=== PATIENT | female | born 1990 | race Caucasian/White ===

== ENCOUNTER 2024-06-26 16:49 | Emergency (ER) | payer OTHER, SELFPAY ==
[2024-06-26] VITALS (8 sets, daily range): BP systolic 113–162; BP diastolic 71–89; PULSE 57–87; RESP 13–20; TEMP 36.7–36.8; O2SAT 95–100; BMI 32.3
--- NOTE | 2024-06-26 16:45 | ECG_ITS ---
APPROVED REPORT Exam: Resting ECG HR:88 bpm ECG Measurements Heart Rate 88 AXES DC 128 P 54 QRSd 95 QRS 73 QT 374 T 73 QTc 419 Conclusion SINUS RHYTHM WITH SINUS ARRHYTHMIA NORMAL ECG UNCONFIRMED REPORT Electronically signed by : HORTENSIA ALSTON, 06/29/2024 00:44:45
--- NOTE | 2024-06-26 16:59 | ED_ITS ---
Discharge Plan Disposition Patient Disposition: Home, Self-Care Condition: Good Prescriptions Prescriptions: No Action No Known Home Medications Referrals Follow up/Referrals: Cuate Valdes II, MD [Staff Physician] - See instructions (Chronic constipation) Darian Cartwright DO [Staff Physician] - See instructions (Left CTS) Provider,MD Jose [Primary Care Provider] - See instructions Activity Restrictions/Add. Instructions Additional Instructions/Restrictions: Please utilize the disimpaction sheet that we gave you. Please call both gastroenterology and orthopedics to make your appointments. Return to the ER for any worsening signs or symptoms as needed Clinical Impressions Clinical Impression: Left hand paresthesia Chest pain Qualifiers: Chest pain type: unspecified Qualified Code(s): R07.9 - Chest pain, unspecified Constipation Qualifiers: Constipation type: unspecified constipation type Qualified Code(s): K59.00 - Constipation, unspecified Print Language Print Language: Chinese Discharge ED Provider: sIiah Allison General Adult HPI <BLAINE Glasgow - Last Filed: 06/26/24 20:22> General Chief complaint: Chest Pain Stated complaint: chest pain Time Seen by Provider: 06/26/24 16:59 History of Present Illness HPI narrative: Patient presents for evaluation of abdominal pain and left hand paresthesia. Patient states that she has been having crampy upper abdominal pain intermittently all day. It moves from [id number] has not been constant. She has no associated nausea vomiting diarrhea chest pain shortness of breath fever chills hemoptysis hematochezia melena. Patient states that she had a small pebble sized bowel movement yesterday but has not gone in the last 2 days. Additionally late this afternoon she started having burning and tingling in her left hand and left forearm. She denies loss of motor or sensory. She does work at a desk all day. She is right-hand dominant however. Related Data Home Medications ?Medication ?Instructions ?Recorded ?Confirmed No Known Home Medications 06/26/24 06/26/24 Allergies Allergy/AdvReac Type Severity Reaction Status Date / Time No Known Allergies Allergy Verified 06/26/24 17:12 PFSH <BLAINE Glasgow - Last Filed: 06/26/24 20:22> [facility] Disclaimer: The information contained in this section may have been updated after the patient was seen, as this information can be updated by other users. Social History (Updated 06/26/24 @ 20:22 by BLAINE Glasgow) Smoking Status: Never smoker alcohol intake: never current occupational status: employed Travel in the last 8 weeks: None Have you lived/traveled outside [place] in past 30 days?: No Contact w/someone who lives/traveled outside US past 30 days?: No Exposure to someone with infectious disease in past 14 days?: No Do you have a fever (greater than 100.4 F or 38 C)?: No Have you tested positive for COVID-19: No Exposed to someone with COVID-19 in past 14 days?: No Do you have a sore throat?: No Do you have a cough?: No Do you have any weakness?: No Do you have any diarrhea?: No Are you experiencing any unusual bleeding?: No Do you have any muscle aches/pain?: No Do you have any abdominal pain?: No Are you experiencing loss of taste or smell?: No <BLAINE Glasgow - Last Filed: 06/26/24 20:22> ROS Obtained: Yes Systems reviewed as appropriate & no additional complaints except as documented Physical Exam <BLAINE Glasgow - Last Filed: 06/26/24 20:22> General General appearance: alert Respiratory Respiratory exam: Present normal lung sounds bilaterally Cardiovascular Cardiovascular exam: Present regular rate Neurological Exam Neurological exam: Present alert and oriented X3 Medical Decision Making <BLAINE Glasgow - Last Filed: 06/26/24 20:22> Medical Records Medical records reviewed: Yes I reviewed the patient's medical records. Screening: Per USPSTF and CDC recommendations, given the prevalence of disease in our region, it is our hospital?s policy to screen for HIV and viral Hepatitis for all patients aged 18 and over and those with ongoing risk factors. Sebas Inquiry Pt receiving controlled substance: No Vital Signs: 06/26/24 16:49 06/26/24 17:01 06/26/24 17:30 Temperature 98.0 F Temperature Source Oral Pulse Rate 83 67 Pulse Rate [Right] 87 Respiratory Rate 20 14 17 Blood Pressure 116/74 113/71 Blood Pressure [Right Arm] 162/87 H Blood Pressure Mean [Right Arm] 112 Blood Pressure Source [Right Arm] Automatic Cuff 02 Sat by Pulse Oximetry 100 97 96 Oxygen Delivery Method Room Air Room Air Room Air 06/26/24 18:00 06/26/24 18:30 06/26/24 19:17 Temperature Temperature Source Pulse Rate 72 68 60 Pulse Rate [Right] Respiratory Rate 15 13 15 Blood Pressure 121/81 133/84 118/89 Blood Pressure [Right Arm] Blood Pressure Mean [Right Arm] Blood Pressure Source [Right Arm] 02 Sat by Pulse Oximetry 97 95 96 Oxygen Delivery Method 06/26/24 19:30 06/26/24 20:24 Temperature 98.3 F Temperature Source Pulse Rate 57 L 67 Pulse Rate [Right] Respiratory Rate 17 16 Blood Pressure 119/84 131/88 Blood Pressure [Right Arm] Blood Pressure Mean [Right Arm] Blood Pressure Source [Right Arm] 02 Sat by Pulse Oximetry 97 Oxygen Delivery Method Room Air Lab Data Lab results reviewed: Yes I reviewed the patient's lab results. Lab Results 06/26/24 16:45: WBC 7.6, RBC 4.87, Hgb 14.3, Hct 42.7, MCV 87.7, MCH 29.4, MCHC 33.5, RDW 12.3, Plt Count 293, MPV 8.8, Neut % (Auto) 57.8, Lymph % (Auto) 34.6, [place] % (Auto) 5.4, Eos % (Auto) 1.6, Baso % (Auto) 0.5, Neut # (Auto) 4.4, Lymph # (Auto) 2.6, [place] # (Auto) 0.4, Eos # (Auto) 0.1, Baso # (Auto) 0.0, D-Dimer 0.56 H, Sodium 141, Potassium 4.0, Chloride 104, Carbon Dioxide 28, Anion Gap 13.0, BUN 12, Creatinine 0.70, Estimated Creat Clear 162, Estimated GFR 96, Est GFR ( Amer) 116, Glucose 105 H, Calcium 9.4, Magnesium 1.9, Total Bilirubin 0.3, AST 49 H, ALT 75, Alkaline Phosphatase 97, Troponin I < 0.01, Total Protein 7.9, Albumin 4.8, Globulin 3.1, Albumin/Globulin Ratio 1.5, Lipase 151, TSH 2.60, Free T4 Index 3.4 L, Thyroxine (T4) 11.8 H, T3 Uptake 06/26/24 17:51: Urine Color Yellow, Urine Appearance Clear, Urine pH 7.5, Ur Specific [place] 1.015, Urine Protein Negative, Urine Glucose (UA) Negative, Urine Ketones Negative, Urine Blood Negative, Urine Nitrate Positive A, Urine Bilirubin Negative, Urine Urobilinogen 1.0, Ur Leukocyte Esterase Trace, Urine RBC Occasional, Urine WBC Occasional, Ur Squamous Epith Cells 3-5, Urine Bacteria 1+, Urine HCG, Qual Negative 06/26/24 18:00: Troponin I < 0.01 06/26/24 16:45 06/26/24 16:45 Orders (Tests/Meds): ED MEDICATIONS Discontinued Medications Generic Name Dose Route Start Last Admin Trade Name Freq PRN Reason Stop Dose Admin Acetaminophen 1,000 mg 06/26/24 17:03 06/26/24 17:47 Acetaminophen 500mg Tab PO 06/26/24 17:04 1,000 mg ONCE ONE Administration Belladonna Alkaloids 60 ml 06/26/24 17:03 06/26/24 17:47 Belladonna Alkaloids 60 Ml Ml PO 06/26/24 17:04 60 ml ONCE ONE Administration Ibuprofen 800 mg 06/26/24 17:03 06/26/24 17:47 Ibuprofen 400 Mg Tablet PO 06/26/24 17:04 800 mg ONCE ONE Administration ORDERS Category Date Time Status Chest XR 2 view (NOT portable) [XR chest 2V] Stat Exams 06/26/24 17:04 Completed KUB (single view) [XR KUB] Stat Exams 06/26/24 17:03 Completed CBC w/Auto Diff [Complete Blood Count Auto Diff] Stat Lab 06/26/24 16:45 Completed CMP [Comprehensive Metabolic Panel] Stat Lab 06/26/24 16:45 Completed D-Dimer Stat Lab 06/26/24 16:45 Completed Lipase Stat Lab 06/26/24 16:45 Completed Magnesium Stat Lab 06/26/24 16:45 Completed Thyroid Panel Stat Lab 06/26/24 16:45 Completed Trop I [Troponin I] Stat Lab 06/26/24 16:45 Completed Troponin I Q3H Lab 06/26/24 18:00 Completed UA [Urinalysis and Microscopic] Stat Lab 06/26/24 17:51 Completed Urine , HCG Qual. Stat Lab 06/26/24 17:51 Completed Urine Culture Stat Micro 06/26/24 17:51 Received HEART Score History (anamnesis): Slightly suspicious ECG: Non-specific disturbance Age: <45 years Risk factors: 1-2 risk factors Troponin: </= normal limit HEART Score: 2 Medical Decision Narrative: In summary patient is a 4-year-old female who presents to the emergency department for evaluation of upper abdominal pain and left hand paresthesia. Patient is initially hypertensive at 162/87 with a heart rate of 87 with normal sinus rhythm on the bedside monitor breathing 20 times a minute 100% on room air upon arrival, the temperature of 98.0. Physical exam is remarkable for clear breath sounds with no reproducible tenderness on palpation of her chest wall, diffuse mild abdominal tenderness more pronounced in the upper quadrants that in the lower with normal bowel sounds without rebound or guarding or rigidity. Examination of the left upper extremity shows tenderness over the volar aspect of her wrist to percussion and positive Tinel's but negative Phalen's but positive reverse Phalen's. Patient has full range of motion distally. Radial and ulnar pulses are intact grossly to exam.. Differential diagnosis includes ACS versus gastroenteritis versus constipation versus pancreatitis and patient is status post cholecystectomy, versus repetitive use injury versus carpal tunnel syndrome of the left hand.. Initial workup will be conducted with hematologic labs EKG plain film chest x-ray KUB urinalysis. Initial interventions include Tylenol GI cocktail Toradol. Initial workup reviewed by me shows that her hematologic labs are nonactionable including a D-dimer of 0.56 and by years criteria PE is excluded, an undetectable troponin x 2, normal sinus rhythm on twelve-lead EKG and my informal to rotation of her plain film chest x- ray shows no acute processes and my informal interpretation of her KUB shows a large colonic stool burden but no evidence of abnormal bowel gas pattern.. The patient was placed in observation status at 1824. Medical necessity for observational status is serial troponins. The patient was provided serial reevaluations continuous cardiac monitoring pulse oximetry while awaiting results. Second troponin was negative and delta was flat. Because of the results I feel patient to be discharged with follow-up with gastroenterology and orthopedics for constipation and carpal tunnel syndrome.. Total time in observation was 2 hours. <Isiah Allison MD - Last Filed: 06/27/24 03:57> Vital Signs: 06/26/24 16:49 06/26/24 17:01 06/26/24 17:30 Temperature 98.0 F Temperature Source Oral Pulse Rate 83 67 Pulse Rate [Right] 87 Respiratory Rate 20 14 17 Blood Pressure 116/74 113/71 Blood Pressure [Right Arm] 162/87 H Blood Pressure Mean [Right Arm] 112 Blood Pressure Source [Right Arm] Automatic Cuff 02 Sat by Pulse Oximetry 100 97 96 Oxygen Delivery Method Room Air Room Air Room Air 06/26/24 18:00 06/26/24 18:30 06/26/24 19:17 Temperature Temperature Source Pulse Rate 72 68 60 Pulse Rate [Right] Respiratory Rate 15 13 15 Blood Pressure 121/81 133/84 118/89 Blood Pressure [Right Arm] Blood Pressure Mean [Right Arm] Blood Pressure Source [Right Arm] 02 Sat by Pulse Oximetry 97 95 96 Oxygen Delivery Method 06/26/24 19:30 06/26/24 20:24 Temperature 98.3 F Temperature Source Pulse Rate 57 L 67 Pulse Rate [Right] Respiratory Rate 17 16 Blood Pressure 119/84 131/88 Blood Pressure [Right Arm] Blood Pressure Mean [Right Arm] Blood Pressure Source [Right Arm] 02 Sat by Pulse Oximetry 97 Oxygen Delivery Method Room Air Lab Data Lab Results 06/26/24 16:45: WBC 7.6, RBC 4.87, Hgb 14.3, Hct 42.7, MCV 87.7, MCH 29.4, MCHC 33.5, RDW 12.3, Plt Count 293, MPV 8.8, Neut % (Auto) 57.8, Lymph % (Auto) 34.6, [place] % (Auto) 5.4, Eos % (Auto) 1.6, Baso % (Auto) 0.5, Neut # (Auto) 4.4, Lymph # (Auto) 2.6, [place] # (Auto) 0.4, Eos # (Auto) 0.1, Baso # (Auto) 0.0, D-Dimer 0.56 H, Sodium 141, Potassium 4.0, Chloride 104, Carbon Dioxide 28, Anion Gap 13.0, BUN 12, Creatinine 0.70, Estimated Creat Clear 162, Estimated GFR 96, Est GFR ( Amer) 116, Glucose 105 H, Calcium 9.4, Magnesium 1.9, Total Bilirubin 0.3, AST 49 H, ALT 75, Alkaline Phosphatase 97, Troponin I < 0.01, Total Protein 7.9, Albumin 4.8, Globulin 3.1, Albumin/Globulin Ratio 1.5, Lipase 151, TSH 2.60, Free T4 Index 3.4 L, Thyroxine (T4) 11.8 H, T3 Uptake 06/26/24 17:51: Urine Color Yellow, Urine Appearance Clear, Urine pH 7.5, Ur Specific [place] 1.015, Urine Protein Negative, Urine Glucose (UA) Negative, Urine Ketones Negative, Urine Blood Negative, Urine Nitrate Positive A, Urine Bilirubin Negative, Urine Urobilinogen 1.0, Ur Leukocyte Esterase Trace, Urine RBC Occasional, Urine WBC Occasional, Ur Squamous Epith Cells 3-5, Urine Bacteria 1+, Urine HCG, Qual Negative 06/26/24 18:00: Troponin I < 0.01 Orders (Tests/Meds): ED MEDICATIONS Discontinued Medications Generic Name Dose Route Start Last Admin Trade Name Freq PRN Reason Stop Dose Admin Acetaminophen 1,000 mg 06/26/24 17:03 06/26/24 17:47 Acetaminophen 500mg Tab PO 06/26/24 17:04 1,000 mg ONCE ONE Administration Belladonna Alkaloids 60 ml 06/26/24 17:03 06/26/24 17:47 Belladonna Alkaloids 60 Ml Ml PO 06/26/24 17:04 60 ml ONCE ONE Administration Ibuprofen 800 mg 06/26/24 17:03 06/26/24 17:47 Ibuprofen 400 Mg Tablet PO 06/26/24 17:04 800 mg ONCE ONE Administration ORDERS Category Date Time Status Chest XR 2 view (NOT portable) [XR chest 2V] Stat Exams 06/26/24 17:04 Completed KUB (single view) [XR KUB] Stat Exams 06/26/24 17:03 Completed CBC w/Auto Diff [Complete Blood Count Auto Diff] Stat Lab 06/26/24 16:45 Completed CMP [Comprehensive Metabolic Panel] Stat Lab 06/26/24 16:45 Completed D-Dimer Stat Lab 06/26/24 16:45 Completed Lipase Stat Lab 06/26/24 16:45 Completed Magnesium Stat Lab 06/26/24 16:45 Completed Thyroid Panel Stat Lab 06/26/24 16:45 Completed Trop I [Troponin I] Stat Lab 06/26/24 16:45 Completed Troponin I Q3H Lab 06/26/24 18:00 Completed UA [Urinalysis and Microscopic] Stat Lab 06/26/24 17:51 Completed Urine , HCG Qual. Stat Lab 06/26/24 17:51 Completed Urine Culture Stat Micro 06/26/24 17:51 Received ECG Data Tracing #1: I reviewed this ECG and interpreted as documented below: EKG interpreted by me at 1651. Normal sinus rhythm. No ST elevation or depression. Ventricular rate of 88 bpm. QTc normal at 419. [place] interval normal at 128 HEART Score HEART Score: 2 Medical Decision Narrative: In summary patient is a 34-year-old female who presents to the emergency department for evaluation of upper abdominal pain and left hand paresthesia. Patient is initially hypertensive at 162/87 with a heart rate of 87 with normal sinus rhythm on the bedside monitor breathing 20 times a minute 100% on room air upon arrival, the temperature of 98.0. Physical exam is remarkable for clear breath sounds with no reproducible tenderness on palpation of her chest wall, diffuse mild abdominal tenderness more pronounced in the upper quadrants that in the lower with normal bowel sounds without rebound or guarding or rigidity. Examination of the left upper extremity shows tenderness over the volar aspect of her wrist to percussion and positive Tinel's but negative Phalen's but positive reverse Phalen's. Patient has full range of motion distally. Radial and ulnar pulses are intact grossly to exam.. Differential diagnosis includes ACS versus gastroenteritis versus constipation versus pancreatitis and patient is status post cholecystectomy, versus repetitive use injury versus carpal tunnel syndrome of the left hand.. Initial workup will be conducted with hematologic labs EKG plain film chest x-ray KUB urinalysis. Initial interventions include Tylenol GI cocktail Toradol. Initial workup reviewed by me shows that her hematologic labs are nonactionable including a D-dimer of 0.56 and by years criteria PE is excluded, an undetectable troponin x 2, normal sinus rhythm on twelve-lead EKG and my informal to rotation of her plain film chest x- ray shows no acute processes and my informal interpretation of her KUB shows a large colonic stool burden but no evidence of abnormal bowel gas pattern.. The patient was placed in observation status at 1824. Medical necessity for observational status is serial troponins. The patient was provided serial reevaluations continuous cardiac monitoring pulse oximetry while awaiting results. Second troponin was negative and delta was flat. Because of the results I feel patient to be discharged with follow-up with gastroenterology and orthopedics for constipation and carpal tunnel syndrome.. Total time in observation was 2 hours. I was consulted by the ANIYAH, and we discussed the complexity of the problems being addressed. I approve the treatment and management plan for this patient's care in the emergency department, thus performing a substantive portion of the medical decision making. Isiah Allison MD Critical Care <BLAINE Glasgow - Last Filed: 06/26/24 20:22> Critical Care Time Critical Care Time: No
--- NOTE | 2024-06-26 17:03 | XR_ITS ---
PROCEDURE INFORMATION: Exam: XR Abdomen Exam date and time: 06/26/2024 6:03 PM Age: 34 years old Clinical indication: Abdominal pain; Localized; Left upper quadrant (luq); Additional info: Abdominal pain. Left side under ribs TECHNIQUE: Imaging protocol: Radiologic exam of the abdomen. Views: Frontal supine view of the abdomen. 1 View. Total images: 2 COMPARISON: CR XR CHEST 2V 06/26/2024 5:59 PM FINDINGS: Lungs: Lung bases are clear. Gastrointestinal tract: Unremarkable bowel gas distribution. Moderate colonic stool burden. No dilated small bowel segments. Organs: No organomegaly. Status post cholecystectomy. Vasculature: Left pelvic calcification may reflect phleboliths or distal ureteral stone. Bones/joints: Unremarkable. Soft tissues: Peritoneal fascial planes are maintained. IMPRESSION: 1. Unremarkable bowel gas distribution. 2. Moderate colonic stool burden. 3. Left pelvic calcification may reflect phleboliths or distal ureteral stone.
--- NOTE | 2024-06-26 17:04 | XR_ITS ---
PROCEDURE INFORMATION: Exam: XR Chest Exam date and time: 06/26/2024 5:59 PM Age: 34 years old Clinical indication: Pain; Left-sided; Additional info: Chest pain TECHNIQUE: Imaging protocol: Radiologic exam of the chest. Views: 2 views. Total images: 2 COMPARISON: CR XR CHEST 2V 06/26/2024 5:59 PM FINDINGS: Tubes, catheters and devices: EKG leads are present. Lungs: Unremarkable. No consolidation. No pulmonary vascular congestion or edema. Pleural spaces: Unremarkable. No pleural effusion. No pneumothorax. Heart/Mediastinum: Unremarkable. No cardiomegaly. No mediastinal widening or hilar enlargement. Bones/joints: Unremarkable. Organs: Status post cholecystectomy. IMPRESSION: No radiographically acute cardiopulmonary process.
[2024-06-26 17:12] LABS: Basophils % 0.5 % (0.1-2.0); Eosinophils # 0.1 K/mm3 (0.0-0.4); Eosinophils % 1.6 % (0.1-12.0); Hematocrit 42.7 % (37.0-47.0); Hemoglobin 14.3 g/dL (12.2-16.2); Lymphocytes # 2.6 K/mm3 (0.7-4.5); Lymphocytes % 34.6 % (10-50); Mean Corpuscular HGB Conc 33.5 g/dL (31.8-35.4); Mean Corpuscular Hemoglobin 29.4 pg (27.0-31.2); Mean Corpuscular Volume 87.7 fl (81-99); Mean Platelet Volume 8.8 fl (7.4-10.4); Monocytes # 0.4 K/mm3 (0.1-1.0); Monocytes % 5.4 % (1.7-9.3); Neutrophils # 4.4 K/mm3 (1.8-7.8); Neutrophils % 57.8 % (37.0-80.0); Platelet Count 293 K/mm3 (142-424); Red Blood Count 4.87 M/mm3 (4.20-5.40); Red Cell Distribution Width 12.3 % (11.5-17.5); White Blood Count 7.6 K/mm3 (4.8-10.8)
[2024-06-26 17:23] LABS: Alanine Aminotransferase 75 U/L (12-78); Albumin Level 4.8 g/dl (3.5-5.0); Albumin/Globulin Ratio 1.5 (1.1-1.8); Alkaline Phosphatase 97 U/L (38-126); Aspartate Amino Transferase 49 U/L (14-36); Bilirubin,Total 0.3 mg/dl (0.2-1.3); Blood Urea Nitrogen 12 mg/dl (7-17); Calcium 9.4 mg/dl (8.4-10.2); Carbon Dioxide 28 mmol/L (22.0-30.0); Chloride 104 mmol/L (98-107); Creatinine Clearance Estimated 162 mL/min (50-200); Estimated Glomerular Filt Rate 96 ml/min (>60); GFR (African American) 116 ML/MIN (>60); Globulin 3.1 g/dL (1.3-3.2); Glucose 105 mg/dl (74-100); Lipase 151 U/L (23-300); Sodium 141 mmol/L (136-145); Total Protein,Serum 7.9 g/dl (6.3-8.2)
[2024-06-26 17:27] LABS: D-Dimer 0.56 ug/mL (0.0-0.5)
--- NOTE | 2024-06-26 17:38 | PC.NURSE ---
Rounded on the PT. The PT voices that she does not need anything at this time. Call light is within reach of the PT.
[2024-06-26 17:43] LABS: Free Thyroxine Index 3.4 ug/dL (5.93-13.13); T4 (Thyroxine) 11.8 ug/dl (5.53-11.0); Triiodothryronine (T3) Uptake 29 % (23.5-40.5)
[2024-06-26 17:46] LABS: Magnesium 1.9 mg/dl (1.6-2.3)
[2024-06-26] MEDS: ACETAMINOPHEN 500MG TAB 1000 MG PO (17:47)
[2024-06-26] MEDS: BELLADONNA ALKALOIDS 60 ML ML PO (17:47)
[2024-06-26] MEDS: IBUPROFEN 400 MG TABLET 800 MG PO (17:47)
[2024-06-26 17:56] LABS: Microscopic, Urine URINE MICROSCOPIC (MICROSCOPIC)
[2024-06-26 17:59] LABS: Troponin I < 0.01 ng/ml (0.00-0.034)
[2024-06-26 17:59] LABS: Appearance,Urine CLEAR (Clear); Bilirubin,Urine Negative (Negative); Blood, Urine Negative (Negative); Color,Urine YELLOW (Yellow); Glucose,Urine (UA) Negative (Negative); Ketones,Urine Negative (Negative); Leukocyte Esterase,Urine TRACE (Negative); Nitrate,Urine POSITIVE (Negative); PH,Urine 7.5 (5.0-8.5); Protein,Urine Negative (Negative); Specific Gravity, Urine 1.015 (1.005-1.030)
[2024-06-26 18:04] LABS: Urine Pregnancy, HCG Qual. Negative (Negative)
[2024-06-26 18:32] LABS: Bacteria,Urine 1+ /lpf; RBC,Urine Occasional #/hpf (0-3); WBC,Urine Occasional #/hpf (0-3)
[2024-06-26 20:00] LABS: Troponin I < 0.01 ng/ml (0.00-0.034)
== END 2024-06-26 20:25 | disposition home or self-care (01) ==
PROVIDERS: Physician Assistant; Emergency Provider Student in an Organized Health Care Education/Training Program
DX: K59.00 Constipation, unspecified (principal); R07.9 Chest pain, unspecified; R10.10 Upper abdominal pain, unspecified; R20.2 Paresthesia of skin
CPT/HCPCS: 71046; 74018; 80053; 81001; 81025; 83690; 83735; 84436; 84443; 84479; 84484; 85025; 85378; 87086; 93005; 99284

== ENCOUNTER 2025-01-01 11:25 | Day surgery (SDC) | payer OTHER, SELFPAY ==
[2024-12-25 13:34] VITALS: BMI 33.2
--- NOTE | 2025-01-01 10:53 | EXP.HP ---
History of Present Illness *Admission Date: 01/01/25 *Reason for visit:: Blood in the stool, generalized abdominal pain, bloating and constipation *History of present illness: Mrs. Emmanuel is a 34-year-old female who is here for diagnostic colonoscopy secondary to blood in stool, generalized abdominal pain, bloating and constipation. The examination is deemed medically necessary for diagnostic colonoscopy. The patient has been seen, interviewed and examined prior to the procedure by both myself and the anesthesia provider. [facility] Disclaimer: The information contained in this section may have been updated after the patient was seen, as this information can be updated by other users. Medical History Dilatation of cervix with curettage procedure planned Surgical History Hx of cholecystectomy Family History Mother Arthritis Pericarditis Grandfather Cancer Paternal Social History (Updated 01/01/25 @ 12:48 by Fiona Patel RN) Smoking Status: Never smoker alcohol intake: never substance use type: denies use current occupational status: employed Travel in the last 8 weeks?: None caffeine: Yes Have you lived/traveled outside US in past 30 days?: No Contact w/someone who lives/traveled outside US past 30 days?: No Exposure to someone with infectious disease in past 14 days?: No Do you have a fever (greater than 100.4 F or 38 C)?: No Have you tested positive for COVID-19?: No Exposed to someone with COVID-19 in past 14 days?: No Do you have a sore throat?: No Do you have a cough?: No Do you have any weakness?: No Are you experiencing any nausea/vomitting?: No Do you have any diarrhea?: No Are you experiencing any unusual bleeding?: No Do you have any muscle aches/pain?: No Do you have any abdominal pain?: No Are you experiencing loss of taste or smell?: No Review of Systems Review of Systems Review of systems (narrative): Negative *Cardiovascular Comments: Negative *Gastrointestinal Comments: Negative *Genitourinary Comments: Negative *Musculoskeletal Comments: Negative *Neurologic Comments: Negative Meds Home Medications and Allergies Home Medications ?Medication ?Instructions ?Recorded ?Confirmed ?Type plecanatide 3 mg tablet (Trulance) 3 mg PO DAILY #90 tabs 08/05/24 01/01/25 Rx sodium,potassium,mag sulfates 17.5 See Rx Instructions PO .COMPLEX 12/19/24 01/01/25 Rx gram-3.13 gram-1.6 gram oral soln #354 mL (Suprep Bowel Prep Kit) bupropion HCl 150 mg tablet,12 hr 150 mg PO DAILY 12/25/24 01/01/25 History sustained-release (Wellbutrin SR) levonorgestrel-ethinyl estradiol 1 tab PO DAILY 12/25/24 01/01/25 History 0.1 mg-20 mcg tablet (Aviane) New Prescriptions to Start Prescriptions: Allergies Allergy/AdvReac Type Severity Reaction Status Date / Time No Known Allergies Allergy Verified 01/01/25 12:42 Exam *Routine HEENT Exam Head: Present normocephalic Eye: Present EOMI and PERRL ENT: Present mucous membranes moist *Routine Neck Exam Neck: Present supple *Routine Respiratory Exam Respiratory: Present CTA bilaterally *Routine Cardiovascular Exam Cardiovascular: Present RRR *Routine Abdominal Exam Abdominal: Present soft and normoactive bowel sounds; Absent tenderness *Routine Rectal Exam Rectal:: deferred *Routine Genitalia Exam Genitalia:: deferred *Routine Extremities Exam Extremities: Absent cyanosis, clubbing or edema *Routine Skin Exam Skin: Present warm; Absent rash *Routine Neurological Exam Neurological: Present alert and oriented X3 Assessment and Plan *Assessment and plan (1) Blood in stool: Status: Acute Category: Medical Code(s): K92.1 - Melena (2) Generalized abdominal pain: Status: Acute Category: Medical Code(s): R10.84 - Generalized abdominal pain (3) Bloating: Status: Acute Category: Medical Code(s): R14.0 - Abdominal distension (gaseous) (4) Constipation: Status: Acute Qualifiers: Constipation type: unspecified constipation type Qualified Code(s): K59.00 - Constipation, unspecified Category: Medical Code(s): K59.00 - Constipation, unspecified Plan A/P: 1. Blood in stool with generalized abdominal pain, bloating and constipation is the preprocedural diagnosis. The patient will be anesthetized/sedated using MAC sedation. The patient has been seen and examined. Cardiac and lung assessment prior to the examination is stable. Proceed with planned diagnostic colonoscopy.
[2025-01-01 12:44] VITALS: BP 117/71; PULSE 70; RESP 16; TEMP 36.1; O2SAT 97
[2025-01-01 12:50] LABS: Urine Pregnancy, HCG Qual. Negative (Negative)
[2025-01-01] MEDS: LACTATED RINGERS 1000ML 1,000 ML 50 ML IV (12:55)
--- NOTE | 2025-01-01 13:07 | EXP.ANES.CKL ---
[facility] Disclaimer: The information contained in this section may have been updated after the patient was seen, as this information can be updated by other users. Medical History Dilatation of cervix with curettage procedure planned Surgical History Hx of cholecystectomy Family History Mother Arthritis Pericarditis Grandfather Cancer Paternal Social History (Updated 01/01/25 @ 12:48 by Fiona Patel RN) Smoking Status: Never smoker alcohol intake: never substance use type: denies use current occupational status: employed Travel in the last 8 weeks?: None caffeine: Yes Have you lived/traveled outside US in past 30 days?: No Contact w/someone who lives/traveled outside US past 30 days?: No Exposure to someone with infectious disease in past 14 days?: No Do you have a fever (greater than 100.4 F or 38 C)?: No Have you tested positive for COVID-19?: No Exposed to someone with COVID-19 in past 14 days?: No Do you have a sore throat?: No Do you have a cough?: No Do you have any weakness?: No Are you experiencing any nausea/vomitting?: No Do you have any diarrhea?: No Are you experiencing any unusual bleeding?: No Do you have any muscle aches/pain?: No Do you have any abdominal pain?: No Are you experiencing loss of taste or smell?: No [facility] Anesthesia Checklist Patient Identification Patient Identification: Arm Band Structural Data Admitted From: Home Planned Operative Procedure/s: Colonoscopy Consent for Planned Operative Procedure(s) Verified: Yes Verified Documents: Surgical Consent and History and Physical NPO Status Verified Time NPO: 00:00 Additional verifications Anesthesia Reactions: No Airway Assessment Mallampati Score:: Class II C-Spine Mobility Assessed: Yes TMJ Mobility Assessed: Yes Dentition: Good Dentition Neurological Assessment Level of Consciousness: Awake, Alert and Appropriate Anesthesia Plan Anesthesia Risk discussed: Yes Anesthesia Plan: Verified ASA Class: II Anesthesia Type: MAC
--- NOTE | 2025-01-01 13:23 | P.PCN_ITS ---
[facility] Procedure Note Date: 01/01/25 Time: 13:37 Procedure Note:: Colonoscopy Procedure Report: Colonoscopy Endoscopist: Cuate Valdes II, MD Referring physician: Peter Garza MD Date of Procedure: January 01, 2025 Equipment: Olympus [id number] adult colonoscope Sedation: MAC sedation Indication: Mrs. Emmanuel is a 34-year-old female who is here for diagnostic colonoscopy secondary to bloating, constipation and lower abdominal pain. She has seen blood in her stool rarely and this does occur with blood in the toilet bowl. She was having a bowel movement once or twice a month and now with Trulance is having a bowel movement daily. She has had fecal impactions. She reports no weight loss or family history of colitis, Crohn's disease or colon cancer. This is her first colonoscopy. Procedure: Prior to the procedure, a history and physical exam was performed, and patient's medications and allergies were reviewed. The risks, benefits and alternatives of the sedation and procedure were discussed with the patient. All questions were answered and informed consent was obtained. The patient was brought to the procedure room. Patient identification and proposed procedure were verified by the physician and the nurse. The patient was placed in a left lateral decubitus position and the scope was passed under direct vision. Throughout the procedure, the patient's blood pressure, pulse, and oxygen saturations were monitored continuously. The colonoscopy was accomplished without difficulty. The patient tolerated the procedure well. Findings: On digital rectal examination there was normal rectal tone. There were no external hemorrhoids. The colonoscope was introduced through the anal canal to the rectum and advanced to the cecum. The ileocecal valve and appendiceal orifice were identified. The scope was advanced a short distance into the ileum which appeared grossly normal. The scope was then withdrawn into the colon. The cecum, ascending, transverse, descending, sigmoid and rectum were grossly normal. There were no mucosal abnormalities identified. Upon retroflexion within the rectum there were grade 1-2 internal hemorrhoids. The preparation was excellent throughout with [place] Preparation Score of 9. The cecal time was 10 minutes. Impression: 1. Normal colonoscopy with intubation of the terminal ileum 2. Grade 1-2 internal hemorrhoids Plan: The patient's bowel function has significantly improved with Trulance which I would continue daily. If her bloating and discomfort persist, we will discuss treatment for functional abdominal pain and low FODMAP diet.
[2025-01-01 13:41] VITALS: BP 92/67; PULSE 65; RESP 18; TEMP 36.7; O2SAT 98
[2025-01-01 13:51] VITALS: BP 111/67; PULSE 69; RESP 16; O2SAT 99
[2025-01-01 14:01] VITALS: BP 102/64; PULSE 63; RESP 16; O2SAT 99
[2025-01-01 14:09] VITALS: BP 102/69; PULSE 57; RESP 18; O2SAT 100
== END 2025-01-01 14:10 | disposition home or self-care (01) ==
PROVIDERS: PCP Family Medicine; Visit Provider Internal Medicine Gastroenterology
PROC: 0DJD8ZZ Inspection of Lower Intestinal Tract, Via Natural or Artificial Opening Endoscopic (ICD-10-PCS; CPT 45378; principal; 2025-01-01 13:00)
DX: K64.0 First degree hemorrhoids (principal); K64.1 Second degree hemorrhoids; Z79.899 Other long term (current) drug therapy
CPT/HCPCS: 45378; 81025; J7120

== ENCOUNTER 2025-03-21 11:32 | Emergency (ER) | payer OTHER, SELFPAY ==
--- OUTSIDE RECORDS SUMMARY | 2024-10-14 13:00 | XMS_ITS ---
Author Organization [facility] Address [address] [facility] [address] [facility] [address] [place] [id number] Care Team Providers Care Single Needle Operator Name Role Phone Peter Garza Unavailable [phone] Reason For Referral Reason [facility] in [facility] appt. Diagnosis 1 Attention deficit (R 41.840) Referral Organization [facility] Referring Provider First Name Peter Referring Provider Last Name Kayla Referring Provider Speciality Family Pra ctice Referred Provider Specialty Psychology General Notes Sarah Keith 2024 08:56:11 AM > sent referral via website Referral Priority Routine REASON FOR VISIT establishment Medications Medication SIG (Take, Route, Fr equency, Duration) Notes Start Date End Date Status Trulance 3 MG 1 tablet Orally Once a day; Duration: 90 days Active Opill 0.075 MG as directed Orally once daily 10/14 Active Problems Problem Type SNOMED Code ICD Code Onset Dates Problem Status W/U Status Risk Notes Problem Obesity (138506556) Non morbid obesity (E66.9) Active confirmed Problem Attention deficit disorder (86745243) Attention deficit (R41.840) Active confirmed Problem Body mass index 30.00 to 34.99 ([id number] 07) BMI 31.0-31.9,adul t (Z68.31) Active confirmed Vital Signs Blood pressure systolic 122 mm Hg 10/15/19 25 Blood pressure diastolic 80 mm Hg 025 Heart Rate 87 /min 10/14/2024 Height 67 in 10/14/2024 Weight 203.6 lbs 10/14/2024 BMI 31.88 kg/m2 10/14/2024 Encounters Encounter Location Date Provider Diagnosis [facility] [address] [facility] [address] [place] [id number] 10/14/2024 Peter Garza Chronic constipation K59.09 ; Non morbid obesity E66.9 ; BCP ( control pills) initiation Z30.011 ; Attention deficit R41.840 and BMI 31.0-31.9,adult Z68.31 Assessments Encounter Date Diagnosis (ICD Code) Assessment Notes Treatment Notes Treatment Clinical Notes Section Notes 10/14/2024 Chronic constipation (ICD-10 - K59.09) 10/14/2024 Non morbid obesity (ICD-10 - E66.9) 10/14/2024 BCP ( control pills) initiation (ICD-10 - Z30.011) 10/14/2024 Attention deficit (ICD-10 - R41.840) 10/14/2024 BMI 31.0-31.9,adult (ICD-10 - Z68.31) 10/14/2024 Other Patient will return for the folowing fasting labs: CBC, CMP, Lipid & TSH with reflex to free T4 Plan Of Treatment Medication Medication Name Sig Start Date Stop Date Notes Trulance 3 MG 1 tablet Orally Once a day; Duration: 90 days Opill 0.075 MG as directed Orally once daily 10/14/2024 Treatment Notes Assessment Notes Other Patient will return for the folowing fasting labs: CBC, CMP, Lipid & TSH with reflex to free T4 Referrals Referral Date Details 10/14/2024 10/14/2024, Fredi hairston in [facility] appt. Next Appt Details Follow Up: via phone to repo rt progress, Reason: Progress Notes * KAILYN MarieDOB:[birth year] (34 yo F)Acc No.[id number]:10/14/2024 Progress Notes Patient: Marie TAYLOR Provider: Yosvany Garza M.D. :1990 A ge:34 Y S ex:Female Date:10/14/2024 Address:[address] [place] [address], [id number] Subjective: * Chief Complaints: * 1 . Establishment. * HPI: H PI: 34 year old female presents with c/o Patient is here today for?Pt is here today to establish care. She needs a refill on Trulance, wants to start progestin only control and wants an eval for ADHD. * Medical History: P olycystic ovarian syndrome, Constipation. * OB History: T sweta living children 2 . M iscarriage(s) 6 . P regnancy # 1: N . P regnancy # 2: N . * Surgical History: c holecystectomy 12/18. * Family History: 3 brother(s) , 1 sister(s) - healthy. 2 daughter(s) - healthy. . * Social History: C affeine: 400 mg daily. Alcohol: none. Past smoking status: 15 pack year smoking history, quit in 2019. * Medications: T aking Trulance 3 MG Tablet 1 tablet Orally Once a day , Medication List reviewed and reconciled with the patient Objective: * Vitals: W t: 203.6, Temp: 97.9, BP: 122/80, HR: 87, Nurse: mo, Ht: 67, BMI:31.88. * Examination: G eneral Examination: General Appearance: N AD. H EENT: u nremarkable.?Heart: R SR. L ungs: c lear to auscultation. A bdomen: b owel sounds present , soft and nontender. N eurologic Exam: I ntact, gait normal. S kin: n ormal, no rash. P eripheral pulses: n ormal (2+) bilaterally. E xtremities: n o leg edema. ? Assessment: * Assessment: 1. C hronic constipation - K59.09 (Primary) 2 . N on morbid obesity - E66.9? 3. B CP ( control pills) initiation - Z30.011 4 . A ttention deficit - R41.840 5 . B IN 31.0-31.9,adult - Z68.31 Plan: * Treatment: 2. B CP ( control pills) initiation Start Opill Tablet, 0.075 MG, as directed, Orally, once daily, 28, Refills 12. 3. A ttention deficit Referral To:Psychology Reason:[facility] in [place], appt. 4. O thers Notes: Patient will return for the folowing fasting labs: CBC, CMP, Lipid & TSH with reflex to free T4 * Procedure Codes: 3 074F SYST BP LT 130 MM HG, 3079F DIAST BP 80-89 MM HG * Follow Up: v ia phone to report progress * Images: Billing Information: * Visit Code: 47110 Office Visit, New Pt., Level 3. * Procedure Codes: 3074F SYST BP LT 130 MM HG. 3079F DIAST BP 80-89 MM HG. * Electronic signature of Caprice Garza MD on 03/21/2025 at 11:40 AM EDT Sign off status: Pending * Provider: Yosvany Garza M.D. Date: 0 10/14/2024 Generated for Alexis capellan/Greg/eTransmitting on: 1 11:40 AM EDT History and Physical Notes * HPI (History of Present Illness) Category Sub-Category Detail Notes Category Not es HPI Patient is here today for Pt is here today to establish care. She needs a refill on Trulance, wants to start progestin only control and wants an eval for ADHD Examination Category Sub-Category Detail Notes Category Not es General Examination HEENT: unremarkable Heart: RSR Lungs: clear to auscultatio n Abdomen: bowel sounds present , soft and nontender Extremities: no leg edema General Appearance: NAD Skin: normal, no rash Neurologic Exam: Intact, gait normal Peripheral pulses: normal (2+) bilatera lly Consultation Request Notes Referral Date Referring Provider Referred Provider Not es 10/14/2024 Peter Garza [facility] i n [place], AM appt.
--- OUTSIDE RECORDS SUMMARY | 2024-10-30 11:45 | XMS_ITS ---
[facility] Address [address] [facility] [address] [phone] Care Team Providers Care Skein Yarn Dyer Name Role Phone Peter Garza Unavailable [phone] Allergies No Known Allergies Results Component Value Reference Range Notes CBC Fingerstick (in house) Reviewed date:10/30/2024 10:33:19 PM Interpretation: Performing Lab: Notes/Report: wbc 8.0 3.5 - 10 lym 26.4% 15 - 50 mid 6.2% 2 - 15 gran 67.4% 35 - 80 rbc 5.08 3.5 - 5.5 hgb 14.8 11.5 - 16.5 hct 45.0 35 - 55 mcv 88.4 75 - 100 mch 29.2 25 - 35 mchc 33.0 31 - 38 plat 211 100 - 400 REASON FOR VISIT poss pneumonia Medications Medication SIG (Take, Route, Fr equency, Duration) Notes Start Date End Date Status predniSONE 20 MG 1 tablet with food o r milk Orally twice a day; Duration: 5 days 10/30/2024 Active Opill 0.075 MG as directed Orally once daily 10/14 Active Trulance 3 MG 1 tablet Orally Once a day; Duration: 90 days Active Benzonatate 200 MG 1 capsule as needed Orally Three times a day 10/30/2024 Active Zithromax Z-Brayan 250 MG as directed Orall y daily; Duration: 5 days 10/30/2024 Active Vital Signs Blood pressure systolic 112 mm Hg 10/31/19 25 Blood pressure diastolic 76 mm Hg 025 Heart Rate 100 /min 10/30/2024 Height 67 in 10/30/2024 Weight 207 lbs 10/30/2024 BMI 32.42 kg/m2 10/30/2024 Encounters Encounter Location Date Provider [facility] [address] [facility] [address] [place] [phone] 10/30/2024 Peter Garza Acute cough R 05.1 Assessments Encounter Date Diagnosis (ICD Code) Assessment Notes Treatment Notes Treatment Clinical Notes Section Notes 10/30/2024 Acute cough (ICD-10 - R05.1) Plan Of Treatment Medication Medication Name Sig Start Date Stop Date Notes predniSONE 20 MG 1 tablet with food o r milk Orally twice a day; Duration: 5 days 10/30/2024 Benzonatate 200 MG 1 capsule as needed Orally Three times a day 10/30/2024 Zithromax Z-Brayan 250 MG as directed Orall y daily; Duration: 5 days 10/30/2024 Next Appt Details Follow Up: via phone to repo rt progress, Reason: Progress Notes * Marie EMMANUELDOB:[birth year] (34 yo F)Acc No.[id number]:10/30/2024 Progress Notes Patient: Marie TAYLOR Provider: Yosvany Garza M.D. :1990 A ge:34 Y S ex:Female Date:10/30/2024 Address:[address] [place] [address], [id number] Subjective: * Chief Complaints: * 1 . Poss pneumonia. * HPI: E NT/respiratory: 34 year old female presents with c/o cough P t complains of dry without any sputum production cough that started Monday. Associated with wheezing, body aches and shortness of breath. * ROS: D ERMATOLOGY: no R porter. n o H alexandru. G ASTROENTEROLOGY: no N ausea. n o V omiting. U ROLOGY: no D ifficulty urinating. n o B lood in urine. * Medical History: P olycystic ovarian syndrome, Constipation. * Surgical History: c holecystectomy 12/18. * Hospitalization/Major Diagno stic Procedure: D enies Past Hospitalization. * Family History: 3 brother(s) , 1 sister(s) - healthy. 2 daughter(s) - healthy. . * Social History: C affeine: 400 mg daily. Alcohol: none. Past smoking status: 15 pack year smoking history, quit in 2019. * Medications: T aking Opill 0.075 MG Tablet as directed Orally once daily , Taking Trulance 3 MG Tablet 1 tablet Orally Once a day , Medication List reviewed and reconciled with the patient * Allergies: N .K.D.A. Objective: * Vitals: W t: 207, Temp: 98.2, BP: 112/76, HR: 100, O2 Sat: 99% on RA, Nurse: leonard, Ht: 67, BMI:32.42. * Examination: E NT/Respiratory: General Appearance: N AD. E yes: P ERRLA, sclera clear. O ral cavity : e rythema without exudate on pharynx. N john : n o cervical lymphadenopathy. H eart : R RR, normal S1 S2. L ungs: g ood air movement, coarse breath sounds due to upper airway congestion. Assessment: * Assessment: 1. A cute cough - R05.1 (Primary) Plan: * Treatment: Value Reference Range w bc 8.0 3.5 - 10 * l ym 26.4% 15 - 50 * m id 6.2% 2 - 15 * g ran 67.4% 35 - 80 * r bc 5.08 3.5 - 5.5 * h gb 14.8 11.5 - 16.5 * h ct 45.0 35 - 55 * m cv 88.4 75 - 100 * m ch 29.2 25 - 35 * m chc 33.0 31 - 38 * p lat 211 100 - 400 * Nubia Billings 10/30/2024 03:53:0 3 PM EDT > Provider reviewed results while patient in office.Peter Garza 10/30/2024 10:33:12 PM EDT > * Procedure Codes: G 8783 BP SCR PRFRM RCMDD DEFIND SCR INTVL, G8752 MOST RECENT SYSTOLIC BP < 140MM HG, G8754 MOST RECENT DIASTOLIC BP < 90MM HG, 1036F TOBACCO NON-USER * Follow Up: v ia phone to report progress * Images: Billing Information: * Visit Code: 60217 Office Visit, Est Pt., Level 3. * Procedure Codes: G8783 BP SCR PRFRM RCMDD DEFIND SCR INTVL. G8752 MOST RECENT SYSTOLIC BP < 140MM HG. G8754 MOST RECENT DIASTOLIC BP < 90MM HG. 1036F TOBACCO NON-USER. * Electronic signature of Caprice Garza MD on 03/21/2025 at 11:40 AM EDT Sign off status: Pending * Provider: Yosvany Garza M.D. Date: 0 10/30/2024 Generated for Julissai ng/Adrieng/eTransmitting on: 1 11:40 AM EDT History and Physical Notes * HPI (History of Present Illness) Category Sub-Category Detail Notes Category Not es ENT/respiratory cough Pt complains of dry without any sputum production cough that started Monday. Associated with wheezing, body aches and shortness of breath Examination Category Sub-Category Detail Notes Category Not es ENT/Respiratory Oral cavity : erythema without exudate on pharynx Neck : no cervical lymphade nopathy Heart : RRR, normal S1 S2 Lungs: good air movement, c oarse breath sounds due to upper airway congestion General Appearance: NAD Eyes: PERRLA, sclera clear
--- OUTSIDE RECORDS SUMMARY | 2025-02-03 11:20 | XMS_ITS | Encounter Summary ---
[facility] Organization [facility] Address [address] [place] [address] Care Team Providers Care Recreation Programmer Name Role Phone Peter Garza MD Primary Care Provider + [phone] Reason for Visit * Reason Comments Pre-op Exam Encounter Details Date Type Department Care Team (Late st Contact Info) Description 02/03/2025 11:20 AM EDT Office Visit [facility] OBGYN [address] [place] [address] [place] [address] [place] [address] Preoperative evaluation for tubal ligation (Primary Dx); Pre-op exam Social History Tobacco Use Types Packs/Day Years Used Date Smoking Tobacco: Former Cigarettes 1 13 0 07/27/2006 - 07/28/2019 Smokeless Tobacco: Never Alcohol Use Standard Drinks/Week Comments No 0 (1 standard drink = 0.6 oz pur e alcohol) AUDIT-C Answer Date Recorded Q1: How often do you have a drink containing alcohol? Never 09/13/2021 Q2: How many drinks containi ng alcohol do you have on a typical day when you are drinking? Patient does not drink Q3: How often do you have si x or more drinks on one occasion? Never 09/13/2021 [place] Depression Scale Answer Date Recorded [place] Depression Scale Total 16 12/02/2021 The thought of harming myself has occurred to me . 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 * Surgery to Take Out One or Both Fallopian Tubes (Salpingectomy): What to Expect ([place]) documented in this encounter Progress Notes * Donal Beltran MD - 02/03/2025 11:20 AM EDT Images from the original note were not included. Gynecologic Preoperative Exam Note Subjective Marie Emmanuel is a 34 y.o. year old who is scheduled for bilateral salpingectomy for sterilization at [facility] on 02/06/2025 at 815. Her pre operative diagnosis is Desire for Permanent Sterilization. She does not need to see her PCP for preop clearance for this surgery. No LMP recorded.. . Her BMI is Body mass index is 33.2 kg/m??.. She has reviewed the informational video on laparoscopic bilateral salpingectomy. She understands the risks of bleeding, infection, possible damage to other organ systems, includingbut not limited to the gastrointestinal tract and genitourinary tract. She also understands the specific risks listed in the preop information (video, pamphlets, etc.). She has reviewed and signed the preop consent form. Her code status is: FULL She has been instructed to have a light dinner the night before surgery, then nothing to eat or drink after midnight. The day of surgery do not chew gum or smoke. Remove all jewelry, nail telugu, contact lenses prior to coming to the hospital. Do not bring valuables or large sums of money with you.Patient was instructed on what time to arrive and where to check in, maps were given. She was instructed that she will meet an Anesthesiologist and that an IV will be started to provide fluids and sedation. The total time of procedure was discussed. She was instructed that she will need a wheelchair driver. No Known Allergies She has confirmed that she is not allergic to Latex. She is on the following medications. These were reviewed with the patient today and instructed on which medications are ok to take with a sip of water prior to the surgery. Current Outpatient Medications: ibuprofen (ADVIL,MOTRIN) 600 MG tablet, Take 1 tablet by mouth Every 6 (Six) Hours As Needed for Mild Pain ., Disp: 30 tablet, Rfl: 0 levonorgestrel-ethinyl estradiol (AVIANE,ALESSE,LESSINA) 0.1-20 MG-MCG per tablet, Take 1 tablet bymouth Daily., Disp: 28 tablet, Rfl: 12 buPROPion XL (WELLBUTRIN XL) 150 MG 24 hr tablet, Take 1 tablet by mouth Every Morning., Disp: , Rfl: fluconazole (Diflucan) 100 MG tablet, Take 1 tablet by mouth Every 3 (Three) Days., Disp: 3 tablet,Rfl: 0 fluconazole (Diflucan) 100 MG tablet, Take 1 tablet by mouth Every 3 (Three) Days., Disp: 3 tablet,Rfl: 1 metFORMIN (GLUCOPHAGE) 500 MG tablet, Take 1 tablet by mouth Daily With Breakfast., Disp: 30 tablet, Rfl: 11 norethindrone (MICRONOR) 0.35 MG tablet, Take 1 tablet by mouth Daily., Disp: 28 tablet, Rfl: 12 Vit-Fe Fumarate-FA ( 27-1) 27-1 MG tablet tablet, Take by mouth daily., Disp: , Rfl: sertraline (Zoloft) 50 MG tablet, Take 1 tablet by mouth Daily., Disp: 30 tablet, Rfl: 12 Past Medical History: Diagnosis Date Chlamydia 2015 Gonorrhea 2015 Polycystic ovary syndrome 2016 Abnormal Pap smear of cervix 2017 Normal spontaneous vaginal delivery 03/02/2020 Abnormal O'Che glucose challenge test, antepartum 07/26/2021 Acid reflux Anxiety Bipolar 1 disorder Constipation Depression Fatigue Interstitial cystitis Miscarriage within last 12 months Multiple gestation 20 PCOS (polycystic ovarian syndrome) PCOS (polycystic ovarian syndrome) Recurrent loss, antepartum condition or complication Urinary tract infection Varicella Past Surgical History: Procedure Laterality Date D & C WITH SUCTION 2015 DILATATION AND CURETTAGE WISDOM TOOTH EXTRACTION OB History Para Term AB Living 5 2 2 0 3 2 SAB IAB Ectopic Molar Multiple Live Births 3 0 0 0 0 2 # Outcome Date GA Lbr Mitul/2nd Weight Sex Type Anes PTL Lv 5 Term 09/29/21 39w3d 19:36 / 00:06 3305 g (7 lb 4.6 oz) F Vag-Spont EPI N KELVIN Name: KAILYNAMANDASGIRL Apgar1: 8 Apgar5: 9 4 Term 03/02/20 38w6d 04:10 / 00:41 3955 g (8 lb 11.5 oz) F Vag-Spont EPI N KELVIN Name: KAILYN,AMANDASGIRL Apgar1: 8 Apgar5: 9 3 SAB 01/2016 6w0d 2 SAB 08/2015 16w0d SAB Gen Complications: Retained placenta 1 2014 5w0d Social History Tobacco Use Smoking Status Former Current packs/day: 0.00 Average packs/day: 1 pack/day for 13.0 years (13.0 ttl pk-yrs) Types: Cigarettes Start date: 07/27/2006 Quit date: 07/28/2019 Years since quittin.5 Smokeless Tobacco Never Social History Substance and Sexual Activity Alcohol Use No Social History Substance and Sexual Activity Drug Use Not Currently Comment: last use in 06/2015 Review of Systems Constitutional: Negative. Respiratory: Negative. Cardiovascular: Negative. Gastrointestinal: Negative. Genitourinary: Negative. Musculoskeletal: Negative. Neurological: Negative. Psychiatric/Behavioral: Negative. All other systems reviewed and negative. Objective Vitals: 02/03/25 1135 BP: 102/70 Physical Exam Vitals reviewed. Constitutional: Appearance: Normal appearance. HENT: Head: Normocephalic and atraumatic. Cardiovascular: Rate and Rhythm: Normal rate and regular rhythm. Pulmonary: Effort: Pulmonary effort is normal. Breath sounds: Normal breath sounds. Abdominal: General: Abdomen is flat. Palpations: Abdomen is soft. Skin: General: Skin is warm and dry. Neurological: Mental Status: She is alert and oriented to person, place, and time. Psychiatric: Mood and Affect: Mood normal. Behavior: Behavior normal. Assessment Problem List Items Addressed This Visit None Visit Diagnoses Preoperative evaluation for tubal ligation - Primary Relevant Orders HCG, B-subunit, Quantitative Comprehensive Metabolic Panel CBC & Differential Pre-op exam Relevant Orders HCG, B-subunit, Quantitative Comprehensive Metabolic Panel CBC & Differential Plan Will proceed with laparoscopic bilateral salpingectomy at [facility] for sterilization. Risks of surgery were reviewed with the patient including risks of bleeding, infection, damage to other organ systems including, but not limited to GI and tracts (bowel, bladder, blood vessels, nerves) risks of Anesthesia, as well as the risk the surgery will not produce the desired results, possible need for additional surgery, , risk of uterine perforation. PAT Scheduled Sebas has been obtained and reviewed Pain Medication Consent Form has been signed. A review regarding proper medication administration, impact on driving and working while medicated, the safety of use in , the potential for overdose and the proper disposal and storage of controlled medications has been done with the patient. Donal Beltran MD Visit Date: 02/03/2025 documented in this encounter Plan of Treatment Upcoming Encounters Date Type Department Care Team (Late st Contact Info) Description 01/05/2026 11:30 AM EDT Office Visit [facility] OBGYN [address] [place] [address] Donal Beltran MD [address] [facility] [address] [place] [id number] documented as of this encounter Procedures Procedure Name Priority Date/Time Associated Diagnosis Comments HCG, B-SUBUNIT, QUANTITATIVE Routine 02/03/2025 11:53 AM EDT Preoperative evaluation for tubal ligation Pre-op exam CBC AND DIFFERENTIAL Routine 02/03/2025 11:53 AM EDT Preoperative evaluation for tubal ligation Pre-op exam COMPREHENSIVE METABOLIC PANEL Routine 02/03/2025 11:53 AM EDT Preoperative evaluation for tubal ligation Pre-op exam documented in this encounter Results * (ABNORMAL) CBC & Differential (02/03/2025 11:53 AM EDT) WBC 6.15 3.40 - 10.80 10*3/mm3 [facility] RBC 4.60 3.77 - 5.28 10*6/mm3 [facility] Hemoglobin 13.8 12.0 - 15.9 g/dL [facility] Hematocrit 41.8 34.0 - 46.6 % [facility] MCV 90.9 79.0 - 97.0 fL [facility] MCH 30.0 26.6 - 33.0 pg [facility] MCHC 33.0 31.5 - 35.7 g/dL [facility] RDW 11.8(L) 12.3 - 15.4 % [facility] Platelets 276 140 - 450 10*3/mm3 [facility] Neutrophil Rel % 59.8 42.7 - 76.0 % [facility] Lymphocyte Rel % 35.4 19.6 - 45.3 % [facility] Monocyte Rel % 4.1(L) 5.0 - 12.0 % [facility] Eosinophil Rel % 0.0(L) 0.3 - 6.2 % [facility] Basophil Rel % 0.5 0.0 - 1.5 % [facility] Neutrophils Absolute 3.68 1.70 - 7.00 10*3/mm3 [facility] Lymphocytes Absolute 2.18 0.70 - 3.10 10*3/mm3 [facility] Monocytes Absolute 0.25 0.10 - 0.90 10*3/mm3 [facility] Eosinophils Absolute 0.00 0.00 - 0.40 10*3/mm3 [facility] Basophils Absolute 0.03 0.00 - 0.20 10*3/mm3 [facility] Immature Granulocyte Rel % 0.2 0.0 - 0.5 % [facility] Immature Grans Absolute 0.01 0.00 - 0.05 10*3/mm3 [facility] nRBC 0.0 0.0 - 0.2 /100 WBC [facility] Blood 02/03/2025 11:5 3 AM EDT 02/03/2025 Narrative [facility] ([facility]) - 02/04/2025 6:09 AM EDT Performed at: [address] [address] [address] [place], [place] [id number] Zipper Cutter: Yves Tee MD, Phone: [phone] Patient Fasting: N us Donal Beltran MD LAB BLOOD ORDERABLES Fin al Result [facility] ([facility]) [address] [place] [address], [facility] [address] [place] [address], * Comprehensive Metabolic Panel (02/03/2025 11:53 AM EDT) [facility] Glucose 83 65 - 99 mg/dL [facility] BUN 10.0 6.0 - 20.0 mg/dL [facility] Creatinine 0.72 0.57 - 1.00 mg/dL [facility] EGFR Result 112.7 >60.0 mL/min/1.7 3 [facility] Comment: GFR Categories in Chronic Kidney Disease (CKD) GFR Category GFR (mL/min/1.73) Interpretation G1 90 or greater Normal or high (1) G2 60-89 Mild decrease (1) G3a 45-59 Mild to moderate decrease G3b 30-44 Moderate to severe decrease G4 15-29 Severe decrease G5 14 or less Kidney failure (1)In the absence of evidence of kidney disease, neither GFR category G1 or G2 fulfill the criteria for CKD. eGFR calculation 2020 CKD-EPI creatinine equation, which does not include race as a factor BUN/Creatinine Ratio 13.9 7.0 - 25.0 [facility] Sodium 140 136 - 145 mmol/L [facility] Potassium 4.2 3.5 - 5.2 mmol/L [facility] Chloride 102 98 - 107 mmol/L [facility] Total CO2 24.8 22.0 - 29.0 mmol/L [facility] Calcium 9.2 8.6 - 10.5 mg/dL [facility] Total Protein 7.2 6.0 - 8.5 g/dL [facility] Albumin 4.3 3.5 - 5.2 g/dL [facility] Globulin 2.9 gm/dL [facility] A/G Ratio 1.5 g/dL [facility] Total Bilirubin 0.2 0.0 - 1.2 mg/dL [facility] Alkaline Phosphatase 85 39 - 117 U/L [facility] AST (SGOT) 24 1 - 32 U/L [facility] ALT (SGPT) 23 1 - 33 U/L [facility] Blood 02/03/2025 11:5 3 AM EDT 02/03/2025 Narrative [facility] ([facility]) - 02/04/2025 6:09 AM EDT Performed at: [address] [place] [id number] Zipper Cutter: Yves Tee MD, Phone: [phone] Patient Fasting: N Donal Beltran MD LAB BLOOD ORDERABLES Fin al Result Performing Organization Address City/State/[facility] Co de Phone Number [facility] [employer] [facility] ([facility]UL[facility]) [address] [place] [address], [facility] [address] [place] [address], * HCG, B-subunit, Quantitative (02/03/2025 11:53 AM EDT) HCG Quantitative <1.00 mIU/mL [facility] Comment: HCG Ranges by Gestational Age Females - non- premenopausal </= 1mIU/mL HCG Females - postmenopausal </= 7mIU/mL HCG 3 Weeks 5.4 - 72 mIU/mL 4 Weeks 10.2 - 708 mIU/mL 5 Weeks 217 - 8,245 mIU/mL 6 Weeks 152 - 32,177 mIU/mL 7 Weeks 4,059 - 153,767 mIU/mL 8 Weeks 31,366 - 149,094 mIU/mL 9 Weeks 59,109 - 135,901 mIU/mL 10 Weeks 44,186 - 170,409 mIU/mL 12 Weeks 27,107 - 201,615 mIU/mL 14 Weeks 24,302 - 93,646 mIU/mL 15 Weeks 12,540 - 69,747 mIU/mL 16 Weeks 8,904 - 55,332 mIU/mL 17 Weeks 8,240 - 51,793 mIU/mL 18 Weeks 9,649 - 55,271 mIU/mL Blood 02/03/2025 11:5 3 AM EDT 02/03/2025 Narrative [facility] ([facility]) - 02/04/2025 6:09 AM EDT Performed at: [address] [id number] Zipper Cutter: Yves Tee MD, Phone: [phone] Patient Fasting: N Donal Beltran MD LAB BLOOD ORDERABLES Fin al Result [facility] (AMBULATORY) [address] [place] [address], [place] [phone] [facility] [address] [place] [address], [place] [phone] documented in this encounter Visit Diagnoses Diagnosis Preoperative evaluation for tubal ligation- Primary Other specified pre-operative examination Pre-op exam documented in this encounter Care Teams Recreation Programmer Relationship Specialty Start Date End Date Peter Garza MD [address] [facility] [address] [facility] [address] [place] [address] PCP - General 12/30/24 documented as of this encounter
--- OUTSIDE RECORDS SUMMARY | 2025-02-06 07:30 | XMS_ITS | Encounter Summary ---
[facility] Organization [facility] Address [address] [place] [address] Care Team Providers Care Rehab Spec Name Role Phone Peter Garza MD Primary Care Provider + [phone] Reason for Visit * Surgical (Routine) - Closed Specialty Diagnoses / Procedures Referred By Mariann keys Referred To Contact Diagnoses Encounter for sterilization Procedures [place] LAPAROSCOPY W/RMVL ADNEXAL STRUCTURES Donal Beltran MD [address] [facility] [address] [place] [address] Phone: tel: fax: [facility] [address] [place] [address] Phone: tel: fax: Referral ID Status Reason Start Date Expiration Date Visits Re quested Visits Authorized [id number] Closed 02/06/2025 02/06/2025 1 1 Encounter Details Date Type Department Care Team (Late st Contact Info) Description 02/06/2025 7:30 AM EDT Outside Facility Service [facility] OBGYN [address] [facility] [address] [place] [address] Donal Beltran MD [address] [facility] [address] [place] [address] Status post bilateral salpingectomy (Primary Dx) Social History Tobacco Use Types Packs/Day Years [...] more drinks on one occasion? Never 09/13/2021 [place] Depression Scale Answer Date Recorded [place] Depression Scale Total 16 12/02/2021 The thought [...] on file documented as of this encounter Plan of Treatment Upcoming Encounters Date Type Department Care Team (Late st Contact Info) Description 01/05/2026 11:30 AM EDT Office Visit [facility] OBGYN [address] [place] [address] [place] [address] [place] [address] [address] [place] [address] documented as of this encounter Visit Diagnoses Diagnosis Status post bilateral salpingectomy- Primary documented in this encounter Care Teams Rehab Spec Relationship Specialty Start Date End Date Peter Garza MD [address] [place] [address] [place] [address] PCP - General 12/30/24 documented as of this encounter
--- OUTSIDE RECORDS SUMMARY | 2025-02-24 11:20 | XMS_ITS | Encounter Summary ---
[facility] Address [address] [place] [address] Care Team Providers Care Torts Law Professor Name Role Phone Peter Garza MD Primary Care Provider + [phone] Reason for Visit * Reason Comments Post-op Encounter Details Date Type Department Care Team (Late st Contact Info) Description 02/24/2025 11:20 AM EDT Office Visit [facility] OBGYN [address] [place] [address] [place] [address] [place] [address] Postoperative examination (Primary Dx) Social History Tobacco Use Types [...] more drinks on one occasion? Never 09/13/2021 [place] Depression Scale Answer Date Recorded [place] Depression Scale Total 16 12/02/2021 The thought [...] Sign Reading Time Taken Comments Blood Pressure 118/74 02/24/2025 11:20 AM EDT Pulse - - Temperature - - Respiratory Rate - - Oxygen Saturation - - Inhaled Oxygen Concentration - - Weight 96.9 kg (213 lb 9.6 oz) 02/24/2025 11:20 AM EDT Height 170.2 cm (5' 7 ) 02/24/2025 11:20 AM EDT Body Mass Index 33.45 02/24/2025 11:20 AM EDT documented in this encounter Patient Instructions * Attachments The following attachments cannot be sent through Care Everywhere. * Surgery to Take Out One or Both Fallopian Tubes (Salpingectomy): What to Know After ([place]) documented in this encounter Progress Notes * Donal Beltran MD - 02/24/2025 11:20 AM EDT Images from the original note were not included. OBGYN Postoperative Exam Note Subjective Chief Complaint Patient presents with Post-op Marie Emmanuel is a 34 y.o. year old presenting to be seen for her post-operative visit.She is S/P laparoscopic bilateral salpingectomy on 02/06/25 [facility] for Desire for Permanent Sterilization. Currently she reports no problems with eating, bowel movements, voiding, or wound drainage and pain is well controlled. The pathology results from her procedure are in Marie's record and are benign. OTHER THINGS SHE WANTS TO DISCUSS TODAY: Nothing else Current Outpatient Medications: buPROPion XL (WELLBUTRIN XL) 150 MG 24 hr tablet, Take 1 tablet by mouth Every Morning., Disp: , Rfl: fluconazole (Diflucan) 100 MG tablet, Take 1 tablet by mouth Every 3 (Three) Days., Disp: 3 tablet,Rfl: 0 fluconazole (Diflucan) 100 MG tablet, Take 1 tablet by mouth Every 3 (Three) Days., Disp: 3 tablet,Rfl: 1 ibuprofen (ADVIL,MOTRIN) 600 MG tablet, Take 1 tablet by mouth Every 6 (Six) Hours As Needed for Mild Pain ., Disp: 30 tablet, Rfl: 0 ibuprofen (ADVIL,MOTRIN) 600 MG tablet, Take 1 tablet by mouth Every 6 (Six) Hours As Needed for Mild Pain., Disp: 30 tablet, Rfl: 3 levonorgestrel-ethinyl estradiol (AVIANE,ALESSE,LESSINA) 0.1-20 MG-MCG per tablet, Take 1 tablet bymouth Daily., Disp: 28 tablet, Rfl: 12 metFORMIN (GLUCOPHAGE) 500 MG tablet, Take 1 tablet by mouth Daily With Breakfast., Disp: 30 tablet, Rfl: 11 norethindrone (MICRONOR) 0.35 MG tablet, Take 1 tablet by mouth Daily., Disp: 28 tablet, Rfl: 12 oxyCODONE-acetaminophen (Percocet) 5-325 MG per tablet, Take 1 tablet by mouth Every 8 (Eight) Hours As Needed for Moderate Pain., Disp: 12 tablet, Rfl: 0 Vit-Fe Fumarate-FA ( 27-) 27-1 MG tablet tablet, Take by mouth daily., Disp: , Rfl: promethazine (PHENERGAN) 12.5 MG tablet, Take 1 tablet by mouth Every 6 (Six) Hours As Needed for Nausea., Disp: 12 tablet, Rfl: 1 sertraline (Zoloft) 50 MG tablet, Take 1 tablet by mouth Daily., Disp: 30 tablet, Rfl: 12 Past Medical History: Diagnosis Date Abnormal O'Che glucose challenge test, antepartum 07/26/2021 Abnormal Pap smear of cervix 2017 Acid reflux Anxiety Bipolar 1 disorder Chlamydia 2015 Constipation Depression Fatigue Gonorrhea 2015 Interstitial cystitis Miscarriage within last 12 months Multiple gestation 10-5-20 Normal spontaneous vaginal delivery 03/02/2020 PCOS (polycystic ovarian syndrome) PCOS (polycystic ovarian syndrome) Polycystic ovary syndrome 2016 Recurrent loss, antepartum condition or complication Urinary tract infection Varicella Past Surgical History: Procedure Laterality Date D & C WITH SUCTION 2016 DILATATION AND CURETTAGE WISDOM TOOTH EXTRACTION The following portions of the patient's history were reviewed and updated as appropriate:allergies Review of Systems Constitutional: Negative. Respiratory: Negative. Cardiovascular: Negative. Gastrointestinal: Negative. Musculoskeletal: Negative. Neurological: Negative. Psychiatric/Behavioral: Negative. Objective BP 118/74 Ht 170.2 cm (67 ) Wt 96.9 kg (213 lb 9.6 oz) LMP 02/08/2025 (Within Days) BMI 33.45 kg/m?? Physical Exam Vitals reviewed. Constitutional: Appearance: Normal appearance. HENT: Head: Normocephalic and atraumatic. Abdominal: General: Abdomen is flat. Palpations: Abdomen is soft. Skin: General: Skin is warm and dry. Neurological: Mental Status: She is alert and oriented to person, place, and time. Psychiatric: Mood and Affect: Mood normal. Behavior: Behavior normal. Assessment S/P laparoscopic bilateral salpingectomy Plan May return to full activity with no restrictions Any significant events that occurred during surgery reviewed The importance of keeping all planned follow-up and taking all medications as prescribed was emphasized. Return in about 11 months (around 01/24/2026) for Annual physical. Donal Beltran MD 02/24/2025 Answers submitted by the patient for this visit: Post Operative Visit (Submitted on 02/24/2025) Chief Complaint: Follow-up Pain Control: no pain Fever: no fever Diet: adequate intake, nausea Activity: returning to normal Operative Site Issues: No documented in this encounter Plan of Treatment Upcoming Encounters Date Type Department Care Team (Late st Contact Info) Description 01/05/2026 11:30 AM EDT Office Visit [facility] OBGYN [address] [place] [address] Donal Beltran MD [facility] [address] [place] [address] documented as of this encounter Visit Diagnoses Diagnosis Postoperative examination- Primary Follow-up examination, following unspecified surgery documented in this encounter Care Teams Torts Law Professor Relationship Specialty Start Date End Date Peter Garza MD [address] [facility] [address] [facility] [address] [place] [address] PCP - General 12/30/24 documented as of this encounter
[2025-03-21] VITALS (7 sets, daily range): BP systolic 102–169; BP diastolic 72–92; PULSE 60–91; RESP 18; TEMP 36.8; O2SAT 99–100; BMI 33.6
--- OUTSIDE RECORDS SUMMARY | 2025-03-21 11:40 | XMS_ITS | Patient Health Record ---
[facility] Organization [facility] Address [address] [facility] [address] [place] [id number] Care Team Providers Care Business Systems Developer Name Role Phone Peter Garza Unavailable [phone] Allergies No Known Allergies Results Component Value [...] - 38 plat 211 100 - 400 Reason For Referral Reason [facility] in [facility] appt. Diagnosis 1 Attention deficit (R 41.840) Referral [facility] Referring Provider First Name Peter Referring Provider Last Name Kayla Referring Provider Speciality Family Pra ctice Referred Provider Specialty Psychology General Notes Sarah Keith 2024 08:56:11 AM > sent referral via website Referral Priority Routine Medications Medication SIG (Take, Route, Fr equency, [...] y daily; Duration: 5 days 10/30/2024 Active Problems Problem Type SNOMED Code ICD Code Onset Dates Problem Status W/U Status Risk Notes Problem Body mass index 30.00 to 34.99 (4626182937420 07) BMI 31.0-31.9,adul t (Z68.31) Active confirmed Problem Attention deficit disorder (20969770) Attention deficit (R41.840) Active confirmed Problem Obesity (011266204) Non morbid obesity (E66.9) Active confirmed Vital Signs Heart Rate 100 /min 10/30/2024 Blood pressure diastolic 76 mm Hg 10/30/2024 Height 67 in 10/30/2024 Blood pressure systolic 112 mm Hg 10/30/2024 Weight 207 lbs 10/30/2024 BMI 32.42 kg/m2 10/30/2024 Encounters Encounter Location Date Provider Diagnosis [facility] [address] [place] [address] 10/14/2024 Peter [place] Chronic constipation K59.09 ; Non morbid obesity E66.9 ; BCP ( control pills) initiation Z30.011 ; Attention deficit R41.840 and BMI 31.0-31.9,adult Z68.31 [facility] [address] [place] [address] 10/30/2024 Peter [place] Acute cough R05.1 Assessments Encounter Date Diagnosis (ICD Code) Assessment Notes Treatment Notes Treatment Clinical Notes Section Notes 10/14/2024 Chronic constipation (ICD-10 - K59.09) 10/14/2024 Non morbid obesity (ICD-10 - E66.9) 10/30/2024 Acute cough (ICD-10 - R05.1) 10/14/2024 BCP ( control pills) initiation (ICD-10 - Z30.011) 10/14/2024 Attention deficit (ICD-10 - R41.840) 10/14/2024 BMI 31.0-31.9,adult (ICD-10 - Z68.31) 10/14/2024 Other Patient will return for the folowing fasting labs: CBC, CMP, Lipid & TSH with reflex to free T4 Plan Of Treatment No Information Insurance Providers Payer Name Payer Address Payer Phone Subscriber Number Group Number Insured Name Patient Relationship to Insured Coverage Start Date Coverage End Date [facility] [id number] [place] [address] [id number] Marie Emmanuel Self - patient is the insured Medical (General) History Medical History History ICD Code Polycystic ovarian syndrome constipation Surgical History Surgery Date(Month/Year) cholecystectomy 12/18
--- OUTSIDE RECORDS SUMMARY | 2025-03-21 11:40 | XMS_ITS | Encounter Summary ---
[facility] Address [address] [place] [address] Care Team Providers Care Hadoop Consultant Name Role Phone Peter Garza MD Primary Care Provider + [phone] Encounter Details Date Type Department Care Team (Late st Contact Info) Description 01/06/2025 Results Follow-Up [facility] OBGYN [address] [place] [address] Donal Beltran MD [address] [place] [address] Social History Tobacco Use Types Packs/Day Years [...] more drinks on one occasion? Never 09/13/2021 [place] Depression Scale Answer Date Recorded [place] Depression Scale Total 16 12/02/2021 The thought [...] on file documented as of this encounter Miscellaneous Notes * Telephone Encounter - Munira Willis RegSched Rep - 01/10/2025 12:02 PM EDT Sx scheduled 02/06, preop 02/03. * Telephone Encounter - Donal Beltran MD - 01/10/2025 10:16 AM EDT Yes. I'll attach Nivia and we can get her set up at [facility] documented in this encounter Plan of Treatment Upcoming Encounters Date Type Department Care Team (Late st Contact Info) Description 01/05/2026 11:30 AM EDT Office Visit [facility] OBGYN [address] [place] [address] Donal Beltran MD [address] [facility] [address] [place] [address] documented as of this encounter Visit Diagnoses Not on filedocumented in this encounter Care Teams Hadoop Consultant Relationship Specialty Start Date End Date Peter Garza MD [address] [facility] [address] [place] [address] PCP - General 12/30/24 documented as of this encounter
--- OUTSIDE RECORDS SUMMARY | 2025-03-21 11:40 | XMS_ITS | Patient Health Record ---
Author Organization [facility] Address [address] [facility] [address] [place] [address] Care Team Providers Care Medical Practice Assistant Name Role Phone Marquita Pearson Unavailable [phone] Reason For Referral No Information Social History Social History Additional Details Category Social Info Options Details Miscellaneous: Sexually active: SEXUAL AC TIV: Current Caffeine: CAFFEINE USE: 1- 3 /day Problems Problem Type SNOMED Code ICD Code Onset Dates Problem Status W/U Status Risk Notes Problem Amenorrhea (95205158) Absence of menses due to use of contraceptive (N91.2) 10/31/19 21 Active confirmed Missed period Plan Of Treatment No Information Medical (General) History Medical History History ICD Code Abnormal Pap Chlamydia Depression Gonorrhea HPV Infertility PCOS Urinary Tract Infections Yeast Infections MENSTR FLOW: Moderate ABORTIONS: 3 BABYPHYSNAME: - nystatin 100,000 unit/gram powder, TO SK IN PNV-DHA CAPSULE Surgical History Surgery Date(Month/Year) D&C 2015
--- OUTSIDE RECORDS SUMMARY | 2025-03-21 11:41 | XMS_ITS | Clinical Summary ---
Author Organization [facility] Address [address] [place] [address] Care Team Providers Care Entry Driver Operator Name Role Phone Peter Garza MD Primary Care Provider + [phone] Allergies No known active allergies Medications Vit-Fe Fumarate-FA ( ) 27-1 MG tablet tablet Take by mouth daily. Active sertraline (Zoloft) 50 MG tabletIndications: Anxiety Take 1 tablet by mouth Daily. 30 tablet 12 2 Active ibuprofen (ADVIL,MOTRIN) 600 MG tabletIndications: follow-up Take 1 tablet by mouth Every 6 (Six) Hours As Needed for Mild Pain . 30 tablet 2 Active norethindrone (MICRONOR) 0.35 MG tabletIndications: Encounter for initial prescription of contraceptive pills Take 1 tablet by mouth Daily. 28 tablet 12 2 Active metFORMIN (GLUCOPHAGE) 500 MG tablet Take 1 tablet by mouth Daily With Breakfast. 30 tablet 11 4 Active fluconazole (Diflucan) 100 MG tablet Take 1 tablet by mouth Every 3 (Three) Days. 3 tablet 4 Active buPROPion XL (WELLBUTRIN XL) 150 MG 24 hr tablet Take 1 tablet by mouth Every Morning. 5 Active fluconazole (Diflucan) 100 MG tablet Take 1 tablet by mouth Every 3 (Three) Days. 3 tablet 1 5 Active levonorgestrel-eth inyl estradiol (AVIANE,ALESSE,LES CRISTIAN) 0.1-20 MG-MCG per tablet Take 1 tablet by mouth Daily. 28 tablet 12 5 12/31/19 26 Active oxyCODONE-acetamin ophen (Percocet) 5-325 MG per tabletIndications: Status post bilateral salpingectomy Take 1 tablet by mouth Every 8 (Eight) Hours As Needed for Moderate Pain. 12 tablet 5 Active ibuprofen (ADVIL,MOTRIN) 600 MG tablet Take 1 tablet by mouth Every 6 (Six) Hours As Needed for Mild Pain. 30 tablet 3 5 Active promethazine (PHENERGAN) 12.5 MG tablet Take 1 tablet by mouth Every 6 (Six) Hours As Needed for Nausea. 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/2021 Resolved Problems Problem Noted Date Diagnosed Date Resolved Date Breech presentation 09/13/2021 10/02/19 22 Recurrent UTI (urinary tract infection) complicating , third trimester 08/09/2021 10/01/2021 Maternal care for breech pre sentation, single gestation 08/09/2021 10/01/2021 Abnormal O'Che glucose challenge test, antepartum 07/26/2021 12/04/2023 05/24/2021 10/01/2021 Normal spontaneous vaginal delivery 03/02/2020 12/04/2023 Normal labor 03/01/2020 03/02/2020 38 weeks gestation of 03/01/2020 03/02/2020 Encounters Date Type Department Care Team Description 02/24/2025 11:20 AM EDT Office Visit [facility]YN [address] [place] [address] Donal Beltran MD Postoperative examination (Primary Dx) 02/24/2025 Travel 02/06/2025 7:30 AM EDT Outside Facility Service [facility] OBGYN [address] [place] [address] Donal Beltran MD Status post bilateral salpingectomy (Primary Dx) 02/03/2025 11:20 AM EDT Office Visit [facility] [place] [place] [address] Donal Beltran MD Preoperative evaluation for tubal ligation (Primary Dx); Pre-op exam 02/03/2025 Travel 01/06/2025 Results Follow-Up [facility] [place] [place] [address] Donal Beltran MD 12/30/2024 10:30 AM EDT Office Visit [facility] [place] [place] [address] Donal Beltran MD Pap test, as part of routine gynecological examination (Primary Dx); Vaginal irritation 12/30/2024 Travel from Last 3 Months Family History Medical History Relation Name Comments Ovarian cancer Maternal Grandmother Elif Obesity Mother Jewell Stroke Mother Jewell Breast cancer Paternal Aunt Sarita Colon cancer Neg Hx Uterine cancer Neg Hx Relation Name Status Comments Maternal Grandmother Elif Mother Jewell Paternal Aunt Sarita Social History Tobacco Use Types Packs/Day Years Used Date Smoking Tobacco: Former Cigarettes 1 13 0 07/27/2006 - 07/28/2019 Smokeless Tobacco: Never Tobacco Cessation:Counseling Given: Not Answered Alcohol Use Standard Drinks/Week Comments No 0 [...] more drinks on one occasion? Never 09/13/2021 [place] Depression Scale Answer Date Recorded [place] Depression Scale Total 16 12/02/2021 The thought [...] file Not on file Not on file Last Filed Vital Signs Vital Sign Reading Time Taken Comments Blood Pressure 118/74 02/24/2025 11:20 AM EDT Pulse 52 10/01/2021 8:10 AM EDT Temperature 36.7 C (98 F) 10/01/2021 8:10 AM EDT Respiratory Rate 18 10/01/2021 8:10 AM EDT Oxygen Saturation 98% 12/27/2016 2:37 PM EDT Inhaled Oxygen Concentration - - Weight 96.9 kg (213 lb 9.6 oz) 02/24/2025 11:20 AM EDT Height 170.2 cm (5' 7 ) 02/24/2025 11:20 AM EDT Body Mass Index 33.45 02/24/2025 11:20 AM EDT Plan of Treatment Upcoming Encounters Date Type Department Care Team (Late st Contact Info) Description 01/05/2026 11:30 AM EDT Office Visit [facility] OBGYN [address] [place] [address] Donal Beltran MD [address] [address] Health Maintenance Due Date Last Done Comments ANNUAL PHYSICAL 12/27/2016 INFLUENZA VACCINE 12/27/2024 03/21/2019, 01/14/2019 Annual Gynecologic Pelvic an d Breast Exam 12/31/2025 12/30/2024, 12/04/2023 PAP SMEAR 12/31/2027 12/30/2024, 12/02/2021 TDAP/TD VACCINES (4 - Td or Tdap) 03/21/2029 03/21/2019, 10/04/2002, 07/29/2002 HEPATITIS C SCREENING Completed 03/08/2021 , 08/02/2019 Pneumococcal Vaccine 0-49 Aged Out No longer eligible based on patient's age to complete this topic Procedures Procedure Name Priority Date/Time Associated Diagnosis Comments TISSUE PATHOLOGY EXAM Routine 02/06/2025 8:15 AM EDT Encounter for sterilization CBC AND DIFFERENTIAL Routine 02/03/2025 11:53 AM EDT Preoperative evaluation for tubal ligation Pre-op exam COMPREHENSIVE METABOLIC PANEL Routine 02/03/2025 11:53 AM EDT Preoperative evaluation for tubal ligation Pre-op exam HCG, B-SUBUNIT, QUANTITATIVE Routine 02/03/2025 11:53 AM EDT Preoperative evaluation for tubal ligation Pre-op exam LIQUID-BASED PAP SMEAR WITH HPV GENOTYPING REGARDLESS OF INTERPRETATION, [facility] (AISHA,COR,MAD) Routine 12/30/2024 10:38 AM EDT Pap test, as part of routine gynecological examination HEPATITIS C ANTIBODY Routine 03/08/2021 11:29 AM EDT 10 weeks gestation of care, subsequent , first trimester from Last 3 Months or Most Recently Relevant to Health Maintenance Results * Tissue Pathology Exam (02/06/2025 8:15 AM EDT) Case Report Surgical Pathology Report Case: [id number] Authorizing Provider: Donal Beltran MD Collected: 02/06/2025 08:15 AM Ordering Location: [facility] Received: 02/06/2025 09:09 AM LABORATORY Pathologist: Elijah Singletary MD Specimen: Fallopian Tubes, Bilateral 02/07/2025 10:57 AM EDT [facility] Clinical Information Encounter for sterilization 02/07/2025 10:57 AM EDT [facility] Final Diagnosis Bilateral tubal ligation: Unremarkable fallopian tube segments Negative for dysplasia or malignancy 02/07/2025 10:57 AM EDT [facility] at 1057 EDT Gross Description 1. Fallopian Tubes, Bilateral. Received in formalin labeled bilateral fallopian tubes are 2 tortuous, fimbriated fallopian tubes which are undesignated as to laterality and average 5.5 cm in length by 0.6 cm in diameter. Sectioning of both tubes reveals a grossly unremarkable lumen. Manager Supply sections to include half of the fimbriated end and cross-sections from both tubes are submitted separately in blocks 1A-1B. LDP 02/07/2025 10:57 AM EDT [facility] Microscopic Description The slides are reviewed and demonstrate histopathologic features supporting the above rendered diagnosis. 02/07/2025 10:57 AM EDT [facility] Tissue Both fallopian tubes / Unknown 02/06/2025 8:15 AM EDT 02/06/2025 9:09 AM EDT Donal Beltran MD PATHOLOGY/CYTOLOGY ORDER CHAPIN Final Result [facility]
[address] [place] [address], * HCG, B-subunit, Quantitative (02/03/2025 11:53 AM [...] 6:09 AM EDT Performed at: 01 - [place] [address] [place], [place] [id number] Bottom Hoop Driver: Yves Tee MD, Phone: [phone] Patient Fasting: N us Donal Beltran MD LAB BLOOD ORDERABLES Fin al Result [facility] (AMBULATORY) [address] [place] [address], [place] [phone] [facility] [address] [place] [address], * (ABNORMAL) CBC & Differential (02/03/2025 11:53 [...] - 02/04/2025 6:09 AM EDT Performed at: [address] [place] [id number] Bottom Hoop Driver: Yves Tee MD, Phone: [phone] Patient Fasting: N Donal Beltran MD LAB BLOOD ORDERABLES Fin al Result [facility] (AMBULATORY) [address] [place] [address], [facility] [address] [place] [id number], * Comprehensive Metabolic Panel (02/03/2025 11:53 AM EDT) [facility] Glucose 83 65 - 99 mg/dL [facility] [...] - 02/04/2025 6:09 AM EDT Performed at: [address] [place] [id number] Bottom Hoop Driver: Yves Tee MD, Phone: [phone] Patient Fasting: N Donal Beltran MD LAB BLOOD ORDERABLES Fin al Result [facility] [employer] [facility] (AMBULATORY) [address] [place] [address], [facility] [address] [place] [address], * LIQUID-BASED PAP SMEAR WITH HPV GENOTYPING REGARDLESS OF INTERPRETATION (AISHA,COR,MAD) (12/30/2024 10:38 AM EDT) Reference Lab Report FINAL CLASSROOM TEACHER CYTOLOGY REPORT ---- DIAGNOSIS: Negative for intraepithelial lesion or malignancy Multiple factors can influence accuracy of Pap tests; therefore, screening at regular intervals is necessary for early cancer detection. ---- Adequacy SATISFACTORY FOR EVALUATION Transformation zone is present. Source CERVICAL/ENDOCERVI RANDY LMP None provided CLINICAL HISTORY: Routine Vaginitis The pap smear is a screening test with limited sensitivity, and false negative tests results can occur. ThinPrep Pap imagined by [employer]. Screened by LOU PERAZA (ASCP) Aptima HPV: Negative The Aptima HPV assay is an in vitro nucleic acid amplification test for the qualitative detection of E6/E7 viral messenger RNA from 14 high risk types of HPV in cervical specimens. The high risk HPV types detected include: 16, 18, 31, 33, 35, 39, 45, 51, 52, 56, 58, 59, 66 68 MDL ATOPOBIUM VAGINAE: Negative MDL BVAB2: Negative MDL CONOR ALBICANS: Negative MDL CONOR GLABRATA: Negative MDL CONOR PARAPSILOSIS: Negative MDL CONOR TROPICALIS: Negative MDL Megasphaera 1: Negative Aptima Trichomonas Vaginallis: Negative The Aptima Trichomonas vaginalis assay is an in vitro qualitative nucleic acid amplification test for the detection of ribosomal RNA to aid in the diagnosis of trichomoniasis. 12/31/2024 3:29 PM EDT [facility] ThinPrep Vial Cervix uteri structure / Unknown Collection / Unknown 12/30/2024 10:38 AM EDT 12/30/2024 10:38 AM EDT Donal Beltran MD PATHOLOGY/CYTOLOGY ORDER CHAPIN Final Result [facility]
[address] [place] [address], * Hepatitis C Antibody (03/08/2021 11:29 AM EDT) Hepatitis C Ab Non-Reacti ve Non-Reacti ve 03/08/2021 6:54 PM EDT [facility] Blood Venipuncture / Unknown 03/08/2021 11:29 AM EDT 03/08/2021 11:29 AM EDT Narrative [facility] - 03/08/2021 6:54 PM EDT Results may be falsely decreased if patient taking Biotin. us Marquita Pearson [facility] BLOOD ORDERABLES Awilda isabell Result [facility]
[address] [place] [address], from Last 3 Months or Most Recently Relevant to Health Maintenance Insurance [facility] Advance Directives * CPR (Attempt to Resuscitate) (Latest Code Status on File) Date Activated Date Inactivated Comments 09/29/2021 4:28 PM 10/01/2021 2:18 PM Question Answer Comments Code Status (Patient has no pulse and is not breathing): CPR (Attempt to Resuscitate) Medical Interventions (Patie nt has pulse or is breathing): Full * CPR (Attempt to Resuscitate) Date Activated Date Inactivated Comments 09/28/2021 4:44 PM 09/29/2021 4:28 PM Question Answer Comments Code Status (Patient has no pulse and is not breathing): CPR (Attempt to Resuscitate) Medical Interventions (Patie nt has pulse or is breathing): Full Support Level Of Support Discussed With: Patient * CPR (Attempt to Resuscitate) Date Activated Date Inactivated Comments 03/02/2020 11:07 AM 03/04/2020 2:09 PM Question Answer Comments Code Status (Patient has no pulse and is not breathing): CPR (Attempt to Resuscitate) Medical Interventions (Patie nt has pulse or is breathing): Full * CPR (Attempt to Resuscitate) Date Activated Date Inactivated Comments 03/01/2020 9:37 PM 03/02/2020 11:07 AM Question Answer Comments Code Status (Patient has no pulse and is not breathing): CPR (Attempt to Resuscitate) Medical Interventions (Patie nt has pulse or is breathing): Full Care Teams Entry Driver Operator Relationship Specialty Start Date End Date Peter Garza MD [address] [place] [facility] [address] [facility] [address] [place] [address] PCP - General 12/30/24
--- OUTSIDE RECORDS SUMMARY | 2025-03-21 11:41 | XMS_ITS | Clinical Summary ---
Author Organization [facility] Address [address] [place] [address] Care Team Providers Care Personal Lines Insurance Advisor Name Role Phone Pcp, No Primary Care Provider Unavailabl e Social History Tobacco Use Types Packs/Day Years Used Date Smoking Tobacco: Never Assessed Comments Unknown Sex and Gender Information Value Date Recorded Sex Assigned at Not on file Legal Sex Female 4:04 PM EST Gender Identity Not on file Sexual Orientation Not on file Plan of Treatment Health Maintenance Due Date Last Done Comments [facility]-Depression Screening 1990 [facility]-/Child/Adol SDOH Screenings 1990 [facility]-Hepatitis B Vaccines (4 of 4 - 4-dose series) 10/18/2002 10/04/2002, 07/29/2002, 06/28/2002 [facility]-Varicella Vaccines (1 of 2 - 13+ 2-dose series) 2003 [facility]- SDOH Screenings 2008 [facility]-Adult SDOH Screenings 2008 HPV Vaccines (3 - 3-dose series) 11/10/2008 08/18/2008, 04/14/2008 [facility]-Pap Smear 2011 [facility]-Cervical Cancer Screening 2020 [facility]-HPV/Cotest 2020 DYI-KORRD-25 Vaccine ( season) 2025 [facility]-Influenza Vaccine (#1) 2025 03/21/2019 [facility]-DTaP,Tdap,and Td Vaccines (4 - Td or Tdap) 03/21/2029 03/21/2019, 10/04/2002, 07/29/2002 [facility]-Zoster Vaccines (1 of 2) 2040 [facility]-Hepatitis A Vaccines Aged Out 09/26/2017 No longer eligible based on patient's age to complete this topic [facility]-HIB Vaccines Aged Out No longer e ligible based on patient's age to complete this topic [facility]-IPV Vaccines Aged Out No longer e ligible based on patient's age to complete this topic [facility]-Pneumococcal Vaccine: Pediatrics (0 to 5 Years) and At-Risk Patients (6 to 49 Years) Aged Out No longer eligible b ased on patient's age to complete this topic [facility]-Rotavirus Vaccines Aged Out No lo nger eligible based on patient's age to complete this topic Insurance Care Teams Personal Lines Insurance Advisor Relationship Specialty Start [place] [address] PCP - General Family Medicine 05/29/21
--- OUTSIDE RECORDS SUMMARY | 2025-03-21 11:41 | XMS_ITS | Encounter Summary ---
Author Organization [facility] Address [address] [place] [address] Care Team Providers Care [facility] Home Health Name Role Phone Peter Garza MD Primary Care Provider + [phone] Encounter Details Date Type Department Care Team (Latest Contact Info) Description 02/03/2025 Travel Social History Tobacco Use Types Packs/Day Years [...] more drinks on one occasion? Never 09/13/2021 [place] Depression Scale Answer Date Recorded [place] Depression Scale Total 16 12/02/2021 The thought [...] Description 01/05/2026 11:30 AM EDT Office Visit [facility] OBGYN [address] [place] [address] Donal Beltran MD [address] [facility] [address] [place] [address] documented as of this encounter Visit Diagnoses Not on filedocumented in this encounter Care Teams [facility] Home Health Relationship Specialty Start Date End Date Peter Garza MD [address] [facility] [address] [facility] [address] [place] [address] PCP - General 12/30/24 documented as of this encounter
--- OUTSIDE RECORDS SUMMARY | 2025-03-21 11:41 | XMS_ITS | Encounter Summary ---
Author Organization [facility] Address [address] [place] [address] Care Team Providers Care Electric Arc Welder Name Role Phone Peter Garza MD Primary Care Provider + [phone] Encounter Details Date Type Department Care Team (Latest Contact Info) Description 02/24/2025 Travel Social History Tobacco Use Types Packs/Day [...] more drinks on one occasion? Never 09/13/2021 [place] Depression Scale Answer Date Recorded [place] Depression Scale Total 16 12/02/2021 The thought [...] Description 01/05/2026 11:30 AM EDT Office Visit [facility] OBGYN [address] [place] [address] Donal Beltran MD [address] [facility] [address] [place] [address] documented as of this encounter Visit Diagnoses Not on filedocumented in this encounter Care Teams Electric Arc Welder Relationship Specialty Start Date End Date Peter Garza MD [address] [facility] [address] [facility] [address] [place] [address] PCP - General 12/30/24 documented as of this encounter
--- NOTE | 2025-03-21 11:48 | CT_ITS ---
FINAL REPORT TECHNIQUE: Thin section axial CT with contrast with multiplanar reconstruction This study was performed with techniques to keep radiation doses as low as reasonably achievable, (ALARA). Individualized dose reduction techniques using automated exposure control or adjustment of mA and/or kV according to the patient's size were employed. CLINICAL HISTORY: left pleuritic cp, s/p recent surgery COMPARISON: None FINDINGS: Pulmonary vessels enhance in normal fashion without evidence of embolism. Thoracic aorta shows no dissection or aneurysm. No pulmonary mass or infiltrate is present. There is no significant pleural effusion. There is no significant pericardial effusion. No mediastinal or hilar adenopathy is present. IMPRESSION: 1. No evidence of pulmonary embolism Reviewed, Interpreted and Dictated by Ruy Vail MD Transcribed by Vangie Gayle Authenticated and [facility]
--- NOTE | 2025-03-21 11:52 | HMH.EDGENADL ---
Discharge Plan Disposition Patient Disposition: Home, Self-Care Prescriptions Prescriptions: New cyclobenzaprine 10 mg tablet 10 mg PO TID PRN (Reason: muscle spasm) 5 Days Qty: 15 0RF naproxen 500 mg tablet 500 mg PO BID PRN (Reason: pain) 7 Days Qty: 14 0RF No Action Trulance 3 mg tablet 3 mg PO DAILY Qty: 90 2RF sodium,potassium,mag sulfates [Suprep Bowel Prep Kit] 17.5-3.13-1.6 gram recon soln See Rx Instructions PO .COMPLEX Qty: 354 0RF Rx Instructions: DILUTE; drink full amount early evening before AND next morning at least 4-5 hr before procedure; follow w 960 mL water PO bupropion HCl [Wellbutrin SR] 150 mg Tablet Sustained-Release 12 Hr 150 mg PO DAILY levonorgestrel-ethinyl estrad [Aviane] 0.1-20 mg-mcg Tablet 1 tab PO DAILY Referrals Follow up/Referrals: Peter Garza MD [Primary Care Provider, Medical] - See instructions Activity Restrictions/Add. Instructions Additional Instructions/Restrictions: No evidence of an intrathoracic or abdominal emergency associated with your visit today. Are most likely secondary to musculoskeletal strain. Please take your anti-inflammatory medication along with your muscle relaxer for symptomatic control. Return to the emergency point with any worsening or different symptoms that you are concerned about. Clinical Impressions Clinical Impression: Left-sided chest wall pain Print Language Print Language: Turkmen Discharge ED Provider: Anne Marie Andino General Adult HPI General Chief complaint: PAIN Stated complaint: Pain Left rib area Time Seen by Provider: 03/21/25 11:39 Mode of Arrival: Ambulatory Source of Information: Patient Description of Symptoms (Recalled from ER Triage Doc. by RN): Pt presents with c/o left sided flank pain/LUQ abdominal pain. Pt states she has had the pain for 1 week, it is /constant in nature. Rates pain as a 7/10. Pt has a hx of kidney stones History of Present Illness HPI narrative: Patient is a 34-year-old female presented today with left inferolateral chest wall discomfort and tenderness to palpation. States has been ongoing for 2 weeks. No cough fevers chills she did have some shortness of breath earlier today which is what prompted her to come to the emergency department. Denies any urinary symptoms any changes in bowel movements etc. Did recently have surgery within the last month she had a tubal ligation. No leg swelling no history of PE or DVT no hemoptysis. No injuries that she is aware of to this region. She is not on any hormone therapy at the moment. Related Data Home Medications ?Medication ?Instructions ?Recorded ?Confirmed bupropion HCl 150 mg tablet,12 hr 150 mg PO DAILY 12/25/24 01/01/25 sustained-release (Wellbutrin SR) levonorgestrel-ethinyl estradiol 1 tab PO DAILY 12/25/24 01/01/25 0.1 mg-20 mcg tablet (Aviane) Previous Rx's ?Medication ?Instructions ?Recorded plecanatide 3 mg tablet (Trulance) 3 mg PO DAILY #90 tabs 08/05/24 sodium,potassium,mag sulfates 17.5 See Rx Instructions PO .COMPLEX 12/19/24 gram-3.13 gram-1.6 gram oral soln #354 mL (Suprep Bowel Prep Kit) cyclobenzaprine 10 mg tablet 10 mg PO TID PRN muscle spasm 5 03/21/25 days #15 tabs naproxen 500 mg tablet 500 mg PO BID PRN pain 7 days #14 03/21/25 tabs Allergies Allergy/AdvReac Type Severity Reaction Status Date / Time No Known Allergies Allergy Verified 01/01/25 12:42 [facility] Disclaimer: The information contained in this section may have been updated after the patient was seen, as this information can be updated by other users. Medical History Dilatation of cervix with curettage procedure planned Surgical History Hx of cholecystectomy Family History Mother Arthritis Pericarditis Grandfather Cancer Paternal Social History Smoking Status: Never smoker alcohol intake: never substance use type: denies use current occupational status: employed Travel in the last 8 weeks?: None caffeine: Yes Have you lived/traveled outside [place] in past 30 days?: No Contact w/someone who lives/traveled outside [place] past 30 days?: No Exposure to someone with infectious disease in past 14 days?: No Do you have a fever (greater than 100.4 F or 38 C)?: No Have you tested positive for COVID-19?: No Exposed to someone with COVID-19 in past 14 days?: No Do you have a sore throat?: No Do you have a cough?: No Do you have any weakness?: No Do you have any diarrhea?: No Are you experiencing any unusual bleeding?: No Do you have any muscle aches/pain?: No Do you have any abdominal pain?: No Are you experiencing loss of taste or smell?: No ROS Obtained: Yes All systems reviewed & no additional complaints except as documented Physical Exam General General appearance: alert Chest Chest inspection: Present tenderness (Left inferolateral tenderness to palpation no masses) Respiratory Respiratory exam: Present normal lung sounds bilaterally; Absent respiratory distress Cardiovascular Cardiovascular exam: Present regular rate Abdominal Exam Abdominal exam: Present soft; Absent distention or tenderness Neurological Exam Neurological exam: Present alert and oriented X3 Medical Decision Making Medical Records Screening: Per USPSTF and CDC recommendations, given the prevalence of disease in our region, it is our hospital?s policy to screen for HIV and viral Hepatitis for all patients aged 18 and over and those with ongoing risk factors. Sebas Inquiry Pt receiving controlled substance: No Vital Signs: 03/21/25 11:36 03/21/25 11:39 03/21/25 13:00 Temperature 98.3 F Temperature Source Oral Pulse Rate 91 H 67 Pulse Rate [Right] 87 Respiratory Rate 18 Blood Pressure 169/92 H 113/75 Blood Pressure [Right Arm] 169/92 H Blood Pressure Mean [Right Arm] 117 Blood Pressure Source [Right Arm] Automatic Cuff Blood Pressure Position [Right Arm] Sitting 02 Sat by Pulse Oximetry 99 100 99 Oxygen Delivery Method Room Air Room Air Room Air 03/21/25 13:30 03/21/25 14:00 Temperature Temperature Source Pulse Rate 66 65 Pulse Rate [Right] Respiratory Rate Blood Pressure 102/72 L 117/77 Blood Pressure [Right Arm] Blood Pressure Mean [Right Arm] Blood Pressure Source [Right Arm] Blood Pressure Position [Right Arm] 02 Sat by Pulse Oximetry 100 100 Oxygen Delivery Method Room Air Room Air Lab Data Lab results reviewed: Yes I reviewed the patient's lab results. Lab Results 03/21/25 12:10: WBC 7.6, RBC 4.74, Hgb 14.4, Hct 42.4, MCV 89.5, MCH 30.4, MCHC 34.0, RDW 11.9, Plt Count 279, MPV 8.6, Neut % (Auto) 66.9, Lymph % (Auto) 27.2, [place] % (Auto) 4.5, Eos % (Auto) 0.9, Baso % (Auto) 0.4, Neut # (Auto) 5.1, Lymph # (Auto) 2.1, [place] # (Auto) 0.3, Eos # (Auto) 0.1, Baso # (Auto) 0.0, Sodium 138, Potassium 3.5, Chloride 102, Carbon Dioxide 30, Anion Gap 9.5, BUN 10, Creatinine 0.80, Estimated Creat Clear 153, Estimated GFR 82, Est GFR ( Amer) 99, Glucose 87, Calcium 8.8, Total Bilirubin 0.4, AST 30, ALT 34, Alkaline Phosphatase 92, Troponin I < 0.01, Total Protein 8.0, Albumin 4.4, Globulin 3.6 H, Albumin/Globulin Ratio 1.2, Serum HCG, Qual Negative, HCV Ab CAMMIE w/Rflx PCR Qn Negative, HIV Ag/Ab Combo Qual Negative 03/21/25 12:32: Urine Color Yellow, Urine Appearance Clear, Urine pH 7.0, Ur Specific Wallace <= 1.005, Urine Protein Negative, Urine Glucose (UA) Negative, Urine Ketones Negative, Urine Blood Negative, Urine Nitrate Negative, Urine Bilirubin Negative, Urine Urobilinogen 0.2, Ur Leukocyte Esterase Negative, Urine RBC None, Urine WBC Occasional, Ur Squamous Epith Cells Occasional, Urine Bacteria Trace 03/21/25 12:10 03/21/25 12:10 Orders (Tests/Meds): ED MEDICATIONS Discontinued Medications Generic Name Dose Route Start Last Admin Trade Name Freq PRN Reason Stop Dose Admin Cyclobenzaprine HCl 10 mg 03/21/25 11:50 03/21/25 12:15 Cyclobenzaprine 10mg Tablet PO 03/21/25 11:51 10 mg ONCE ONE Administration Lactated Ringer's 1,000 mls @ 999 mls/hr 03/21/25 12:00 03/21/25 13:36 Lactated Ringer's 1000 Ml Bag IV 03/21/25 13:00 Infused .Q1H1M DON Infusion Iopamidol 85 ml 03/21/25 13:55 03/21/25 13:56 Iopamidol-370 (76%);100ml Bottle IV 03/21/25 13:56 85 ml ONCE ONE Administration Ketorolac Tromethamine 15 mg 03/21/25 11:47 03/21/25 12:15 Ketorolac 30mg/Ml Vial IV 03/21/25 11:48 15 mg ONCE ONE Administration Sodium Chloride 10 ml 03/21/25 13:55 03/21/25 13:56 Sodium Chloride 0.9% 10ml Syr (Rad Only) IV 03/21/25 13:56 10 ml ONCE ONE Administration Sodium Chloride 50 ml 03/21/25 13:55 03/21/25 13:56 0.9 % Sodium Chloride 50 Ml Vial IV 03/21/25 13:56 50 ml ONCE ONE Administration ORDERS Category Date Time Status CT angio chest PE protocol Stat Cat Scan 03/21/25 11:48 Completed CBC w/Auto Diff [Complete Blood Count Auto Diff] Stat Lab 03/21/25 12:10 Completed CMP [Comprehensive Metabolic Panel] Stat Lab 03/21/25 12:10 Completed HCG Qualitative, Serum Stat Lab 03/21/25 12:10 Completed HIV Combo Stat Lab 03/21/25 12:10 Completed Hepatitis C Ab Qual. W/ RFX Stat Lab 03/21/25 12:10 Completed Trop I [Troponin I] Stat Lab 03/21/25 12:10 Completed Troponin I Q3H Lab 03/21/25 15:00 Ordered Troponin I Q3H Lab 03/21/25 18:00 Ordered UA [Urinalysis and Microscopic] Stat Lab 03/21/25 12:32 Completed Medical Decision Narrative: 34-year-old with above history and physical has pain in the left inferolateral aspect of her chest wall she is tender palpation no obvious soft tissue abnormalities noted there. This seems to be musculoskeletal in nature however there could be a localized inflammatory process just deep to this that could include pneumonia pulmonary embolism and infarction etc. She does not seem to have any abdominal discomfort I do not suspect that this is associate with her bowel kidney or spleen. Will administer IV fluids and Toradol get a CT PE especially given the recent surgery and reassess. Reassessment 2:45 PM patient feeling much better after my therapeutic interventions which suggests that the working diagnosis is musculoskeletal chest pain or chest wall pain. Workup is unremarkable from a laboratory standpoint CT scan was performed I personally interpreted shows no evidence of any peripheral abnormality that explain the patient's localized symptoms specifically no evidence of any pneumonia pulmonary embolism etc. Radiology read is consistent with this as well. Symptomatic medications to treat musculoskeletal pain have been sent to her pharmacy. Additionally there is no evidence of any renal abnormality or splenic abnormality and no evidence of any hematuria to suggest that this might be a kidney stone. Patient was ultimately discharged in improved and stable condition. Critical Care Critical Care Time Critical Care Time: No
[2025-03-21] MEDS: KETOROLAC 30MG/ML VIAL 15 MG IV (12:15)
[2025-03-21] MEDS: CYCLOBENZAPRINE 10MG TABLET 10 MG PO (12:15)
[2025-03-21] MEDS: LACTATED RINGERS 1000ML 1,000 ML 999 ML IV (12:16)
--- NOTE | 2025-03-21 12:16 | ECG_ITS ---
APPROVED REPORT Exam: Resting ECG HR:70 bpm ECG Measurements Heart Rate 70 AXES DE 158 P 42 QRSd 88 QRS 46 QT 415 T 45 QTc 436 Conclusion SINUS RHYTHM LOW QRS VOLTAGE IN PRECORDIAL LEADS [QRS DEFLECTION < 1.0 mV IN CHEST LEADS] MODERATE ST DEPRESSION [0.05+ mV ST DEPRESSION] ABNORMAL ECG UNCONFIRMED REPORT Electronically signed by : Kb Andino, 03/21/2025 15:39:42
[2025-03-21 12:21] LABS: Hematocrit 42.4 % (37.0-47.0); Hemoglobin 14.4 g/dL (12.2-16.2); Immature Granulocytes % 0.1 %; Mean Corpuscular HGB Conc 34.0 g/dL (31.8-35.4); Mean Corpuscular Hemoglobin 30.4 pg (27.0-31.2); Mean Corpuscular Volume 89.5 fl (81-99); Nucleated Red Blood Cells % 0 %; Platelet Count 279 K/mm3 (142-424); Red Blood Count 4.74 M/mm3 (4.20-5.40); Red Cell Distribution Width-SD 38.3 fL; White Blood Count 7.6 K/mm3 (4.8-10.8)
[2025-03-21 12:30] LABS: Albumin Level 4.4 g/dl (3.5-5.0); Chloride 102 mmol/L (98-107); Potassium 3.5 mmoL/L (3.5-5.1); Sodium 138 mmol/L (136-145)
[2025-03-21 12:33] LABS: Alanine Aminotransferase 34 U/L (12-78); Albumin/Globulin Ratio 1.2 (1.1-1.8); Alkaline Phosphatase 92 U/L (38-126); Anion Gap 9.5 mEq/L (5-15); Aspartate Amino Transferase 30 U/L (14-36); Bilirubin,Total 0.4 mg/dl (0.2-1.3); Blood Urea Nitrogen 10 mg/dl (7-17); Calcium 8.8 mg/dl (8.4-10.2); Carbon Dioxide 30 mmol/L (22.0-30.0); Creatinine Clearance Estimated 153 mL/min (50-200); Creatinine,Serum 0.80 mg/dl (0.52-1.04); Estimated Glomerular Filt Rate 82 ml/min (>60); GFR (African American) 99 ML/MIN (>60); Globulin 3.6 g/dL (1.3-3.2); Glucose 87 mg/dl (74-100); Total Protein,Serum 8.0 g/dl (6.3-8.2)
[2025-03-21 12:36] LABS: Microscopic, Urine URINE MICROSCOPIC (MICROSCOPIC)
[2025-03-21 12:38] LABS: Bilirubin,Urine Negative (Negative); Color,Urine YELLOW (Yellow); Glucose,Urine (UA) Negative (Negative); Ketones,Urine Negative (Negative); Leukocyte Esterase,Urine Negative (Negative); PH,Urine 7.0 (5.0-8.5); Protein,Urine Negative (Negative); Specific Gravity, Urine <= 1.005 (1.005-1.030); Urobilinogen,Urine 0.2 EU/dl (0.2)
[2025-03-21 12:45] LABS: Troponin I < 0.01 ng/ml (0.00-0.034)
[2025-03-21 13:07] LABS: HCG Qualitative, Serum Negative (Negative)
[2025-03-21 13:52] LABS: Hepatitis C Ab Qual. W/ RFX NEGATIVE (Negative)
[2025-03-21] MEDS: 0.9 % SODIUM CHLORIDE 50 ML VIAL IV (13:56)
[2025-03-21] MEDS: IOPAMIDOL-370 (76%);100ML BOTTLE 85 ML IV (13:56)
[2025-03-21] MEDS: SODIUM CHLORIDE 0.9% 10ML SYR (RAD ONLY) 10 ML IV (13:56)
[2025-03-21 14:23] LABS: Squamous Epithelial Cell,Urine Occasional #/hpf (0-5); WBC,Urine Occasional #/hpf (0-3)
[2025-03-21 14:24] LABS: Bacteria,Urine Trace /lpf
== END 2025-03-21 15:08 | disposition home or self-care (01) ==
PROVIDERS: Emergency Provider Student in an Organized Health Care Education/Training Program; PCP Family Medicine
DX: R07.89 Other chest pain (principal); R06.02 Shortness of breath
CPT/HCPCS: 71275; 80053; 81001; 84484; 84703; 85025; 86803; 87389; 93005; 96361; 96374; 99285; J1885; J7120; Q9967